=== PATIENT | female | born 1935 | race Caucasian/White ===

== ENCOUNTER 2018-07-11 12:49 | Emergency (ER) | payer OTHER ==
[2018-07-11 15:08] LABS: Protime INR 1.06
[2018-07-11 15:09] LABS: Absolute Lymphocytes (CBC) 2.6 K/uL (0.7-4.9); Absolute Monocytes 1.2 K/uL (0.1-1.3); Absolute Neutrophil 7.7 K/uL (1.8-8.0); Basophils % 0.5 % (0-1.3); Eosinophils % 1.2 % (0-4.4); Hematocrit 45.9 % (36.0-45.0); Lymphocytes % 21.8 % (15.3-44.8); MPV 8.2 fL (7.6-11.3); Monocytes % 10.3 % (3.3-12.3); RBC Red Blood Cell Count 5.39 M/uL (3.86-4.86)
[2018-07-11] MEDS ORDERED: NA CHLORIDE 0.9% 500 ML ONE (15:09)
[2018-07-11] MEDS ORDERED: FAMOTIDINE 20 MG/2 ML VIAL IV ONE (15:10)
[2018-07-11] MEDS ORDERED: NA CHLORIDE 0.9% 1,000 ML ONE (15:10)
--- NOTE | 2018-07-11 15:54 | RAD REPORT ---
EXAM DESCRIPTION: RAD - Chest Single View - 07/11/2018 3:39 pm CLINICAL HISTORY: Cough, abdominal distention, abdominal pain COMPARISON: November 05, 2017 TECHNIQUE: AP portable chest image was obtained 1517 hours . FINDINGS: No peripheral mass or consolidation. Chronic interstitial lung disease is evident. Pattern is not substantially different. Cardiomegaly is present without vascular engorgement. No measurable pleural effusion and no pneumothorax. No acute bony abnormality seen. No acute aortic findings suspec devendra. IMPRESSION: Chronic interstitial lung disease is evident similar to comparison. No acute finding brittany ntified.
[2018-07-11 16:08] LABS: Albumin 3.2 g/dL (3.4-5.0); Bilirubin Direct 0.4 mg/dL (0-0.2); Magnesium 1.9 mg/dL (1.8-2.4); Protein, Total 6.9 g/dL (6.4-8.2)
[2018-07-11 16:11] LABS: Potassium 2.5 mmol/L (3.5-5.1); Troponin (Emerg Dept Use Only) 1.14 ng/mL (0.0-0.045)
--- NOTE | 2018-07-11 16:33 | ER ---
Nurse's Notes [facility] Name: Segun Mckinnon Age: 82 yrs Sex: Female : 1935 Arrival Date: 07/11/2018 Time: 13:20 Bed 8 Private MD: Diagnosis: Hypokalemia;Vomiting;Diarrhea, unspecified;Non-ST elevation (NSTEMI) myocardial infarction;Atrial fibrillation and flutter-slow ventricular response, new onset;Ileus, unspecified-enteritis;Abdominal tenderness;Obesity, unspecified Presentation: 07/11 13:26 Presenting complaint: Patient states: Nausea that has remained after Vomiting and aj diarrhea resolved yesterday. Patient reports she became ill on Thanksgiving and got better yesterday. Able to tolerate food and liquids. Transition of care: patient was not received from another setting of care. Onset of symptoms was July 05, 2018. Risk Assessment: Do you want to hurt yourself or someone else? Patient reports no desire to harm self or others. Initial Sepsis Screen: Does the patient meet any 2 criteria? No. Patient's initial sepsis screen is negative. Does the patient have a suspected source of infection? No. Patient's initial sepsis screen is negative. Care prior to arrival: None. 13:26 Method Of Arrival: Ambulatory aj 13:26 Acuity: LUPILLO 3 aj Triage Assessment: :28 General: Appears in no apparent distress. comfortable, Behavior is calm, cooperative, aj appropriate for age. Pain: Denies pain. Neuro: Level of Consciousness is awake, alert, obeys commands, Oriented to person, place, time, situation, Appropriate for age. Respiratory: Airway is patent Respiratory effort is even, unlabored, Respiratory pattern is regular, symmetrical. GI: Reports nausea. Derm: Skin is intact, is healthy with good turgor, Skin is pink, warm \\T\\ dry. normal. Historical: - Allergies: 13:28 No Known Allergies; aj - Home Meds: : Unable to obtain [Active]; aj - PMHx: 13:28 Hypertension; Asthma; aj - PSHx: 13:28 Hysterectomy; Cholecystectomy; aj - Immunization history:: Adult Immunizations up to date. - Social history:: Smoking status: Patient/guardian denies using tobacco. - Ebola Screening: : Patient negative for fever greater than or equal to 101.5 degrees Fahrenheit, and additional compatible Ebola Virus Disease symptoms Patient denies exposure to infectious person Patient denies travel to an Ebola-affected area in the 21 days before illness onset No symptoms or risks identified at this time. - Family history:: not pertinent. Screenin:35 Abuse screen: Denies threats or abuse. ca1 14:35 Fall Risk None identified. ca1 14:35 Nutritional screening: No deficits noted. ca1 14:35 Tuberculosis screening: No symptoms or risk factors identified. ca1 Assessment: 14:35 General: Appears in no apparent distress. Behavior is calm, cooperative. Pain: ca1 Complains of pain in abdomen Pain does not radiate. Pain currently is 3 out of 10 on a pain scale. Pain began approximately a week ago Is intermittent. Neuro: Level of Consciousness is awake, alert, obeys commands, Oriented to person, place, time, situation. Cardiovascular: Heart tones S1 S2 present Rhythm is irregular. Respiratory: Airway is patent Respiratory effort is even, unlabored, Respiratory pattern is regular, symmetrical, Breath sounds are clear bilaterally. GI: Abdomen is round Bowel sounds present X 4 quads. Abd is soft and non tender X 4 quads. Reports diarrhea, nausea, vomiting, since approximately a week ago. : No signs and/or symptoms were reported regarding the genitourinary system. EENT: No signs and/or symptoms were reported regarding the EENT system. Derm: Skin is pink, warm \\T\\ dry. Musculoskeletal: Range of motion: intact in all extremities. 15:30 Reassessment: Patient and/or family updated on plan of care and expected duration. Pain ca1 level reassessed. Patient is alert, oriented x 3, equal unlabored respirations, skin warm/dry/pink. Pain: Pain currently is 3 out of 10 on a pain scale. 16:13 Reassessment: Patient and/or family updated on plan of care and expected duration. Pain aa5 level reassessed. Patient is alert, oriented x 3, equal unlabored respirations, skin warm/dry/pink. Patient denies pain at this time. 16:40 Reassessment: Dr. Toledo spoke to patient about need for heparin drip and need for aa5 admission due to elevated troponin and new onset A-fib. Pt states "I understand but I am not staying in the hospital", pt refusing admission. Dr. Toledo explained patient about high risk for cardiac arrest and stroke if going home without treatment, pt states "I am not staying in the hospital, I already told you". Pt highly encouraged to be admitted by me and Dr. Toledo, pt continues to refuse. Pt's daughter at bedside. . 17:20 Reassessment: Patient wants to leave AMA but is agreeing to potassium infusion. Patient ca1 will leave after Potassium infusion is completed. . 17:40 Reassessment: To bedside to administer antibiotics IV, pt refusing IV antibiotics. Pt ca1 states "I just came here to get antibiotics, can you ask the doctor if I can get a prescription so I can go home?". Dr. Toledo was notified and no antibiotic prescription will be given to patient, pt continues to want to leave AMA, patient notified of inability to prescribe oral antibiotics by Dr. Toledo, pt states "Okay I want to leave when the potassium is done" . 18:25 Reassessment: Patient is alert, oriented x 3, equal unlabored respirations, skin ca1 warm/dry/pink. Patient states, " I don't want the rest of the Potassium, I want to go home now".. Vital Signs: 13:28 BP 146 / 83; Pulse 79; Resp 20; Temp 98.9(O); Pulse Ox 97% on R/A; Weight 79.38 kg; aj Height 5 ft. 11 in. (180.34 cm); 15:22 BP 147 / 78; Pulse 51 MON; Resp 19; Pulse Ox 98% on R/A; ca1 16:11 BP 140 / 60; Pulse 60 MON; Resp 15; Pulse Ox 98% on R/A; aa5 17:00 BP 131 / 58; Pulse 57; Resp 16; Pulse Ox 98% on R/A; ca1 18:05 BP 153 / 73; Pulse 53; Resp 17; Pulse Ox 98% on R/A; ca1 13:28 Body Mass Index 24.41 (79.38 kg, 180.34 cm) ED Course: 13:20 Patient arrived in ED. rg4 13:28 Triage completed. 13:28 Arm band placed on left wrist. Patient placed in waiting room, Patient notified of wait aj time. 14:16 Narciso Toledo MD is Attending Physician. [facility] 14:16 Maribel Lenz, MINERVA is Primary Nurse. ca1 14:35 Patient has correct armband on for positive identification. Placed in gown. Bed in low ca1 position. Call light in reach. Side rails up X2. Adult w/ patient. cardiac monitor on. Pulse ox on. NIBP on. 14:52 Initial lab(s) drawn, by me, sent to lab. Inserted saline lock: 22 gauge in left dh3 forearm, using aseptic technique. Blood collected. 15:35 X-ray completed. Portable x-ray completed in exam room. Patient tolerated procedure ag1 well. 15:39 XRAY Chest (1 view) In Process Unspecified. EDMS 16:00 No provider procedures requiring assistance completed. ca1 16:29 Raymond Rodriguez MD is Hospitalizing Provider. az 16:[address] via stretcher. ca1 18:25 IV discontinued, intact, bleeding controlled, No redness/swelling at site. Pressure ca1 dressing applied. Administered Medications: Discontinued: NS 0.9% 500 ml IV at bolus once Discontinued: NS 0.9% 1000 ml IV at 125 ml/hr continuous 15:07 Drug: Pepcid 20 mg Route: IVP; Site: left forearm; ca1 15:15 Follow up: Response: No adverse reaction ca1 15:10 Drug: NS 0.9% 500 ml Route: IV; Rate: bolus; Site: left forearm; ca1 16:01 Drug: NS 0.9% 1000 ml Route: IV; Rate: 125 ml/hr; Site: left forearm; aa5 16:40 Drug: Potassium Effervescent Tablet 25 mEq Route: PO; ca1 17:30 Follow up: Response: No adverse reaction ca1 17:07 Not Given (Patient Refused): Aspirin 162 mg PO once ca1 17:07 Not Given (Patient Refused): Heparin (ME-Bolus No thrombolytic) - HEParin 60 units/kg ca1 IVP once; Max 5000 units 17:07 Not Given (Patient Refused): Heparin (ME Drip) 12 units/kg/hr - (HEParin 75401 units, ca1 D5W 500 ml) IV at calculated rate Per protocol; Max initial rate 1000 units/hr 17:20 Drug: Potassium Chloride 20 mEq Route: IV; Rate: per protocol; Site: left forearm; ca1 18:25 Follow up: Infusion discontinued per patient's request. ca1 17:44 Not Given (Patient Refused): Flagyl 500 mg 100 ml IVPB at 200 ml/hr once over 30 mins aa5 17:44 Not Given (Patient Refused): Cipro 400 mg 200 ml IVPB once over 60 mins aa5 18:40 Not Given (Patient Refused): Potassium Chloride 20 mEq IV at per protocol once; ca1 administer over 1-2 hours 18:42 Not Given (Patient Refused): NS 0.9% with KCl 20 mEq/L 1000 ml IV at 100 ml/hr ca1 continuous Intake: Outcome: 16:32 Decision to Hospitalize by Provider. az 18:28 AMA Other Patient refused to sign AMA form, witnessed by me and Leslie Ornelas RN. ca1 18:28 Condition: stable 18:28 Instructed on the need for admit. 18:35 Patient left the ED. ca1 Signatures: Dispatcher [employer] EDClara Sanchez RN Narciso Finn MD MD cha Calderon, Audri, RN RN aa5 Sangita Salas ag1 Sherri Baker 4 Radha Taylor 3 Maribel Lenz RN RN ca1 Corrections: (The following items were deleted from the chart) 14:55 14:35 General: Appears in no apparent distress. Behavior is calm, cooperative, ca1 ca1 15:20 14:35 Respiratory: Airway is patent Respiratory effort is even, unlabored, Respiratory ca1 pattern is regular, symmetrical, ca1 17:59 14:40 Potassium Effervescent Tablet 25 mEq PO ca1 ca1 18:46 18:30 Infusion discontinued per patient's request. ca1 ca1
--- NOTE | 2018-07-11 16:33 | EDPHYS ---
Physician Documentation [facility] Name: Segun Mckinnon Age: 82 yrs Sex: Female : 1935 Arrival Date: 07/11/2018 Time: 13:20 Bed 8 Private MD: ED Physician Narciso Toledo HPI: 07/11 14:34 This 82 yrs old Female presents to ER via Ambulatory with complaints of az Abdominal Pain, Diarrhea. 14:34 The patient presents to the emergency department with nausea, vomiting, diarrhea, az abdominal pain. Onset: The symptoms/episode began/occurred 2 day(s) ago. Possible causes: unknown. The symptoms are aggravated by nothing. Associated signs and symptoms: The patient has no apparent associated signs or symptoms. Severity of symptoms: At their worst the symptoms were mild moderate in the emergency department the symptoms are unchanged. The patient has not experienced similar symptoms in the past. Historical: - Allergies: 13:28 No Known Allergies; aj - Home Meds: 13:28 Unable to obtain [Active]; aj - PMHx: 13:28 Hypertension; Asthma; aj - PSHx: 13:28 Hysterectomy; Cholecystectomy; aj - Immunization history:: Adult Immunizations up to date. - Social history:: Smoking status: Patient/guardian denies using tobacco. - Ebola Screening: : Patient negative for fever greater than or equal to 101.5 degrees Fahrenheit, and additional compatible Ebola Virus Disease symptoms Patient denies exposure to infectious person Patient denies travel to an Ebola-affected area in the 21 days before illness onset No symptoms or risks identified at this time. - Family history:: not pertinent. ROS: 14:38 Constitutional: Negative for fever, chills, and weight loss, Eyes: Negative for injury, az pain, redness, and discharge, ENT: Negative for injury, pain, and discharge, Neck: Negative for injury, pain, and swelling, Cardiovascular: Negative for chest pain, palpitations, and edema, Respiratory: Negative for shortness of breath, cough, wheezing, and pleuritic chest pain, Back: Negative for injury and pain, : Negative for injury, bleeding, discharge, and swelling, MS/Extremity: Negative for injury and deformity, Skin: Negative for injury, rash, and discoloration, Neuro: Negative for headache, weakness, numbness, tingling, and seizure, Psych: Negative for depression, anxiety, suicide ideation, homicidal ideation, and hallucinations, Allergy/Immunology: Negative for hives, rash, and allergies, Endocrine: Negative for neck swelling, polydipsia, polyuria, polyphagia, and marked weight changes, Hematologic/Lymphatic: Negative for swollen nodes, abnormal bleeding, and unusual bruising. 14:38 Abdomen/GI: Positive for abdominal pain, of the right upper quadrant, left upper quadrant, right lower quadrant and left lower quadrant. Exam: 14:38 Constitutional: This is a well developed, well nourished patient who is awake, alert, az and in no acute distress. Head/Face: Normocephalic, atraumatic. Eyes: Pupils equal round and reactive to light, extra-ocular motions intact. Lids and lashes normal. Conjunctiva and sclera are non-icteric and not injected. Cornea within normal limits. Periorbital areas with no swelling, redness, or edema. ENT: Nares patent. No nasal discharge, no septal abnormalities noted. Tympanic membranes are normal and external auditory canals are clear. Oropharynx with no redness, swelling, or masses, exudates, or evidence of obstruction, uvula midline. Mucous membranes moist. Neck: Trachea midline, no thyromegaly or masses palpated, and no cervical lymphadenopathy. Supple, full range of motion without nuchal rigidity, or vertebral point tenderness. No Meningismus. Chest/axilla: Normal chest wall appearance and motion. Nontender with no deformity. No lesions are appreciated. Cardiovascular: Regular rate and rhythm with a normal S1 and S2. No gallops, murmurs, or rubs. Normal PMI, no JVD. No pulse deficits. Respiratory: Lungs have equal breath sounds bilaterally, clear to auscultation and percussion. No rales, rhonchi or wheezes noted. No increased work of breathing, no retractions or nasal flaring. Back: No spinal tenderness. No costovertebral tenderness. Full range of motion. Female : Normal external genitalia. Skin: Warm, dry with normal turgor. Normal color with no rashes, no lesions, and no evidence of cellulitis. MS/ Extremity: Pulses equal, no cyanosis. Neurovascular intact. Full, normal range of motion. Neuro: Awake and alert, GCS 15, oriented to person, place, time, and situation. Cranial nerves II-XII grossly intact. Motor strength 5/5 in all extremities. Sensory grossly intact. Cerebellar exam normal. Normal gait. Psych: Awake, alert, with orientation to person, place and time. Behavior, mood, and affect are within normal limits. 14:38 Abdomen/GI: Inspection: distension, Bowel sounds: normal, Palpation: mild abdominal tenderness, in all quadrants, Liver: no appreciated palpable abnormalities, Hernia: not appreciated. Vital Signs: 13:28 BP 146 / 83; Pulse 79; Resp 20; Temp 98.9(O); Pulse Ox 97% on R/A; Weight 79.38 kg; aj Height 5 ft. 11 in. (180.34 cm); 15:22 BP 147 / 78; Pulse 51 MON; Resp 19; Pulse Ox 98% on R/A; ca1 16:11 BP 140 / 60; Pulse 60 MON; Resp 15; Pulse Ox 98% on R/A; aa5 17:00 BP 131 / 58; Pulse 57; Resp 16; Pulse Ox 98% on R/A; ca1 18:05 BP 153 / 73; Pulse 53; Resp 17; Pulse Ox 98% on R/A; ca1 13:28 Body Mass Index 24.41 (79.38 kg, 180.34 cm) aj MDM: 14:16 Patient medically screened. [facility] 14:38 Data reviewed: vital signs, nurses notes, lab test result(s), EKG, radiologic studies, [facility] CT scan, plain films. 07/11 14:33 Order name: Basic Metabolic Panel; Complete Time: 16:42 az 07/11 14:33 Order name: CBC with Diff; Complete Time: 16:14 [facility] 07/11 14:33 Order name: LFT's; Complete Time: 16:42 az 07/11 14:33 Order name: Magnesium; Complete Time: 16:42 az 07/11 14:33 Order name: NT PRO-BNP; Complete Time: 16:42 az 07/11 14:33 Order name: PT-INR; Complete Time: 16:14 az 07/11 14:33 Order name: Troponin (emerg Dept Use Only); Complete Time: 16:42 az 07/11 14:33 Order name: Lipase; Complete Time: 16:42 az 07/11 14:33 Order name: Urine Culture [facility] 07/11 16:26 Order name: Phosphorus; Complete Time: 16:42 EDMS 07/11 17:28 Order name: Comprehensive Metabolic Panel [facility] 07/11 14:33 Order name: XRAY Chest (1 view); Complete Time: 16:14 [facility] 07/11 14:33 Order name: CT Abd/Pelvis - W/Contrast [facility] 07/11 17:28 Order name: Lipid Profile [facility] 07/11 17:28 Order name: Troponin I [facility] 07/11 17:28 Order name: Troponin I [facility] 07/11 17:29 Order name: CBC with Automated Diff [facility] 07/11 17:50 Order name: Urine Dipstick--Ancillary (enter results) 07/11 14:33 Order name: EKG; Complete Time: 14:35 [facility] 07/11 14:33 Order name: Cardiac monitoring; Complete Time: 14:56 [facility] 07/11 14:33 Order name: EKG - Nurse/Tech; Complete Time: 14:56 [facility] 07/11 14:33 Order name: IV Saline Lock; Complete Time: 14:56 [facility] 07/11 14:33 Order name: Labs collected and sent; Complete Time: 14:56 [facility] 07/11 14:33 Order name: O2 Per Protocol; Complete Time: 14:56 [facility] 07/11 14:33 Order name: O2 Sat Monitoring; Complete Time: 14:56 [facility] 07/11 16:41 Order name: CONS Physician Consult [facility] 07/11 17:11 Order name: CT; Complete Time: 17:20 [facility] 07/11 17:29 Order name: Clear Liquid [facility] 07/11 18:14 Order name: Consult Internal Medicine-Raymond Rodriguez MD ([facility]); Complete [facility] Time: 18:22 Administered Medications: Discontinued: NS 0.9% 500 ml IV at bolus once Discontinued: NS 0.9% 1000 ml IV at 125 ml/hr continuous 15:07 Drug: Pepcid 20 mg Route: IVP; Site: left forearm; ca1 15:15 Follow up: Response: No adverse reaction ca1 15:10 Drug: NS 0.9% 500 ml Route: IV; Rate: bolus; Site: left forearm; ca1 16:01 Drug: NS 0.9% 1000 ml Route: IV; Rate: 125 ml/hr; Site: left forearm; aa5 16:40 Drug: Potassium Effervescent Tablet 25 mEq Route: PO; ca1 17:30 Follow up: Response: No adverse reaction ca1 17:07 Not Given (Patient Refused): Aspirin 162 mg PO once ca1 17:07 Not Given (Patient Refused): Heparin (AK-Bolus No thrombolytic) - HEParin 60 units/kg ca1 IVP once; Max 5000 units 17:07 Not Given (Patient Refused): Heparin (AK Drip) 12 units/kg/hr - (HEParin 39292 units, ca1 D5W 500 ml) IV at calculated rate Per protocol; Max initial rate 1000 units/hr 17:20 Drug: Potassium Chloride 20 mEq Route: IV; Rate: per protocol; Site: left forearm; ca1 18:25 Follow up: Infusion discontinued per patient's request. ca1 17:44 Not Given (Patient Refused): Flagyl 500 mg 100 ml IVPB at 200 ml/hr once over 30 mins aa5 17:44 Not Given (Patient Refused): Cipro 400 mg 200 ml IVPB once over 60 mins aa5 18:40 Not Given (Patient Refused): Potassium Chloride 20 mEq IV at per protocol once; ca1 administer over 1-2 hours 18:42 Not Given (Patient Refused): NS 0.9% with KCl 20 mEq/L 1000 ml IV at 100 ml/hr ca1 continuous Disposition: 07/11/18 18:32 Patient has left against medical advice. Impression: Hypokalemia, Vomiting, Diarrhea, unspecified, Non-ST elevation (NSTEMI) myocardial infarction, Atrial fibrillation and flutter - slow ventricular response, new onset, Ileus, unspecified - enteritis, Abdominal tenderness, Obesity, unspecified. - Patients states they are going to Home. - Condition is Serious. Follow up: Private Physician; When: Upon discharge from the Emergency Department; Reason: Recheck today's complaints, Continuance of care, Re-evaluation by your physician. - Problem is new. - Symptoms are unchanged. Signatures: Dispatcher [employer] EDClara Sanchez RN RN aj Anderson, Corey, MD MD cha Calderon, Audri RN MINERVA aa5 Maribel Lenz RN RN ca1 Corrections: (The following items were deleted from the chart) 16:26 16:19 PHOSPHORUS+[id number].LAB.BRZ ordered. [facility] EDMI 17:23 16:32 Hospitalization Ordered by Raymond Rodriguez MD for Inpatient Admission. Preliminary az diagnosis is Atrial fibrillation and flutter; Hypokalemia; Vomiting; Diarrhea, unspecified; Non-ST elevation (NSTEMI) myocardial infarction; Cardiomegaly; Unspecified combined systolic (congestive) and diastolic (congestive) heart failure. Bed requested for Intensive Care Unit. Status is Inpatient Admission. Condition is Fair. Problem is new. Symptoms have improved. UTI on Admission? No. az 17:44 17:22 IV Saline Lock - Large Bore ordered. az aa5 18:30 17:23 07/11/2018 16:32 Hospitalization Ordered by Raymond Rodriguez MD for Inpatient [facility] Admission. Preliminary diagnosis is Atrial fibrillation and flutter - new onset, svr; Hypokalemia; Vomiting; Diarrhea, unspecified; Non-ST elevation (NSTEMI) myocardial infarction; Cardiomegaly; Unspecified combined systolic (congestive) and diastolic (congestive) heart failure; Ileus, unspecified - enteritis. Bed requested for Intensive Care Unit. Status is Inpatient Admission. Condition is Fair. Problem is new. Symptoms have improved. UTI on Admission? No. az 18:35 18:32 07/11/2018 18:32 Patients has left against medical advice. Impression: ca1 Hypokalemia; Vomiting; Diarrhea, unspecified; Non-ST elevation (NSTEMI) myocardial infarction; Atrial fibrillation and flutter - slow ventricular response, new onset; Ileus, unspecified - enteritis; Abdominal tenderness; Obesity, unspecified. Patient states they are going to Home. Condition is Serious. Follow up: Private Physician; When: Upon discharge from the Emergency Department; Reason: Recheck today's complaints, Continuance of care, Re-evaluation by your physician. Problem is new. Symptoms are unchanged. az
[2018-07-11] MEDS ORDERED: ASPIRIN 81 MG CHEWABLE TABLET ONE (16:35)
[2018-07-11] MEDS ORDERED: NS KCL 20MEQ 0 ML IV ONE (16:36)
[2018-07-11] MEDS ORDERED: KCL 20 MEQ/100 mL IVPB 20 MEQ/100 ML BAG IV ONE (16:36)
[2018-07-11] MEDS ORDERED: POTASSIUM 25 MEQ EFFERV TAB ONE (16:37)
[2018-07-11] MEDS ORDERED: HEPARIN/D5W 0 UNIT/0 ML BAG IV ONE (16:37)
[2018-07-11] MEDS ORDERED: HEPARIN 5000 UNIT/ML 1 ML VIAL ONE (16:37)
[2018-07-11 16:39] LABS: Phosphorus 2.8 mg/dL (2.5-4.9)
--- NOTE | 2018-07-11 17:10 | RAD REPORT ---
EXAM DESCRIPTION: CT - Abdomen Pelvis W Contrast - 07/11/2018 4:46 pm CLINICAL HISTORY: Abdominal pain COMPARISON: None. TECHNIQUE: Biphasic, helical CT imaging of the abdomen and pelvis was performed following 100 ml non -ionic IV contrast. Oral contrast was given. All CT scans are performed using dose optimization technique as appropriate and may include automated exposure control or mA/KV adjustment according to patient size. FINDINGS: No suspicious findings in the lung bases. The liver, spleen, and pancreas show no suspicious findings. Cholecystectomy clips are present. No bi liary tree dilatation. Symmetric renal function is seen with no hydronephrosis or suspicious renal mass. No pyelonephritis o r acute renal parenchymal process. Urinary bladder is mostly contracted. Pelvic floor laxity is prese nt. Uterus is absent. Ovaries are atrophic. No gastric dilatation or wall thickening. Duodenum is unremarkable. Proximal small bowel loops are di lated up to 4 cm. Bowel transitions back to a normal diameter in the lower abdomen. Ileocecal valve i s normal. A mass or point of obstruction is not identified. There is some fecalized bowel content wit hin the distal small bowel. Patient has bilateral inguinal hernias. There is a small amount of free f luid in the right-sided hernia. A knuckle of small bowel extends into the origin of the inguinal sanna l on the right. Does not appear to be a point of obstruction. No free air or pneumatosis. Small quantity of free fluid in the pelvis is likely reactive. No bulk y lymphadenopathy. No mass. No omental thickening. No adrenal abnormality. Disc and bony degenerative changes are present. Dense arterial tree calcifications are present. IMPRESSION: Multiple dilated proximal small bowel loops are present without an obstructing mass or p oint of transition. Small bowel finding may represent enteritis or ileus. No gastric dilatation or abnormal fluid retenti on. Patient does have a right inguinal hernia they contains a knuckle of distal small bowel. This does no t appear to be a point of obstruction.
[2018-07-11] MEDS ORDERED: ONDANSETRON 4 MG/2 ML VIAL IV PRN (17:23)
[2018-07-11] MEDS ORDERED: ACETAMINOPHEN 500 MG TAB PO PRN (17:23)
[2018-07-11] MEDS ORDERED: D5.45NS W/KCL 20MEQ 1,000 ML IV SCH ×2 (18:00)
[2018-07-11 18:08] LABS: Urine Blood NEGATIVE (NEG); Urine Glucose NEGATIVE (NEG); Urine Protein NEGATIVE (NEG); Urine pH 7.5 (5.0-7.0)
--- NOTE | 2018-07-11 18:13 | P.CNS ---
Date of Consult: 07/11/18 Patient seen and examined. Chart reviewed and case discussed with RN and Dr. Toledo. I was called to admit patient. Patient is an 82 yo F w PMHx of HTN and asthma who comes in with abdominal discomfort, diarrhea and N/V x 5 days. Patient was worked up and found to have colitis/enteritis on CT abd however also had low K 2.5 and elevated trop at 1.14. She was in Afib w slow vent rate. Patients K was replaced however she did not wish to stay in the hospital. She signed out AMA. She was counseled extensively regarding benefits of staying and risks of leaving. She understands that her condition will worsen and may even lead to a coronary event or perhaps even . Patient was AAOx3, adamant about leaving. Daughter at the bedside. Patient stated she wants to go home and requested Abx script for her colitis. She understands that is not sufficient for her condition. PE VSS, afebrile. HR<60 Gen AAOx3 CV S1, S2, irregularly, irregular Resp CTA b/l Abd soft NT/ND, +BS Labs reviewed Imaging reviewed
--- NOTE | 2018-07-11 20:22 | P.HP ---
Certification for Inpatient Patient admitted to: Inpatient With expected LOS: >2 Midnights Patient will require the following post-hospital care: None Practitioner: I am a practitioner with admitting privileges, knowledge of patient current condition, hospital course, and medical plan of care. Services: Services provided to patient in accordance with Admission requirements found in Title 42 Section 412.3 of the Code of Federal Regulations Patient History Date of Service: 07/12/18 Reason for admission: Colitis History of Present Illness: Patient is an 82 yo F w PMHx of HTN and asthma who comes in with abdominal discomfort, diarrhea and N/V x 5 days. She denied any chest pain or shortness of breath. Her symptoms are constant moderate progressively worsening. Patient was brought into the ER for further evaluation. Patient was worked up and found to have colitis/enteritis on CT abd however also had low K 2.5 and elevated trop at 1.14. She was in Afib w slow vent rate. Patient's potassium was replaced IV Home medications list reviewed: Yes - Past Medical/Surgical History Diabetic: No -: Hypertension -: Asthma -: Hysterectomy -: Cholecystectomy - Family History Family History: Reviewed- Non-Contributory (Patient denies any family history of cancer or premature coronary artery disease) - Social History Smoking Status: Never smoker Alcohol use: No Place of Residence: Home Review of Systems 10-point ROS is otherwise unremarkable Physical Examination - Vital Signs Temperature: 98.9 F Blood Pressure: 153/73 Pulse: 53 Respirations: 17 - Physical Exam General: Alert, In no apparent distress, Oriented x3 HEENT: Atraumatic, PERRLA, Mucous membr. moist/pink, EOMI, Sclerae nonicteric Neck: Supple, 2+ carotid pulse no bruit, Without JVD or thyroid abnormality Respiratory: Clear to auscultation bilaterally, Normal air movement Cardiovascular: No edema, Normal pulses, Normal S1 S2, Irregular heart rate/ rhythm Gastrointestinal: Normal bowel sounds, Soft and benign, Non-distended, No tenderness Musculoskeletal: No clubbing, No tenderness Integumentary: No rashes Neurological: Normal gait, Normal speech, Normal strength at 5/5 x4 extr, Normal tone, Normal affect - Studies Laboratory Data (last 24 hrs) 07/11/18 18:01: Troponin I 0.92 H* 07/11/18 16:19: Phosphorus Cancelled 07/11/18 14:50: PT 12.5, INR 1.06 07/11/18 14:50: WBC 11.7 H, Hgb 15.1 H, Hct 45.9 H, Plt Count 297 07/11/18 14:50: Sodium 135 L, Potassium 2.5 L*, BUN 12, Creatinine 1.00, Glucose 120 H, Phosphorus 2.8, Magnesium 1.9, Total Bilirubin 1.0, AST 28, ALT 23, Alkaline Phosphatase 83, Lipase 179 Assessment and Plan - Plan Assessment and plan 1. Colitis 2. Hypokalemia 3. Atrial fibrillation with slow ventricular rate 4. Elevated troponin level 5. Essential hypertension 6. Intermittent asthma Patients K was replaced however she did not wish to stay in the hospital. She signed out AMA. She was counseled extensively regarding benefits of staying and risks of leaving. She understands that her condition will worsen and may even lead to a coronary event or perhaps even . Patient was AAOx3, adamant about leaving. Daughter at the bedside. Patient stated she wants to go home and requested Abx script for her colitis. She understands that is not sufficient for her condition. Discharge Plan: Home Plan to discharge in: 48 Hours - Advance Directives Does patient have a Living Will: No Does patient have a Durable POA for Healthcare: No - Code Status/Comfort Care Code Status Assessed: Yes
--- NOTE | 2018-07-12 07:21 | EKG ---
Test Date: 2018-07-11 Test Time: 14:52:41 Return To Service Inspector: ROGER MEASUREMENT RESULTS: Intervals: Rate: 62 OR: QRSD: 128 QT: 462 QTc: 468 [place]: P: OR: QRS: -49 T: 234 INTERPRETIVE STATEMENTS: Atrial fibrillation with premature ventricular or aberrantly conducted complexes es Left axis deviation Nonspecific intraventricular block Cannot rule out Anteroseptal infarct, age undetermined T wave abnormality, consider inferolateral ischemia Abnormal ECG No previous ECG available for comparison Electronically Signed On 07-12-18 07:19:56 LABORATORY ANIMAL CARETAKER by Polo Martínez
== END 2018-07-11 18:35 | disposition left against medical advice (07) ==
LOC: ER 12:49 → ERHOLD 16:34 → UNDOADMIN 16:34 → ER 18:35
DX: K52.9 Noninfective gastroenteritis and colitis, unspecified (principal); I21.4 Non-ST elevation (NSTEMI) myocardial infarction; I48.91 Unspecified atrial fibrillation; I48.92 Unspecified atrial flutter; E87.6 Hypokalemia; R19.7 Diarrhea, unspecified; E66.9 Obesity, unspecified; I10 Essential (primary) hypertension
CPT/HCPCS: 36415; 71045; 74177; 80048; 80076; 81003; 83690; 83735; 83880; 84100; 84484 ×2; 85025; 85610; 87086; 87088; 93005; J1644; J7030; Q9967

== ENCOUNTER 2018-12-20 12:17 | Inpatient (IN) | payer OTHER ==
[2018-12-20 13:24] LABS: Absolute Lymphocytes (CBC) 2.1 K/uL (0.7-4.9); Absolute Neutrophil 11.7 K/uL (1.8-8.0); Basophils % 0.6 % (0-1.3); Eosinophils % 0.7 % (0-4.4); Hematocrit 48.9 % (36.0-45.0); Lymphocytes % 14.1 % (15.3-44.8); MPV 9.4 fL (7.6-11.3); Monocytes % 6.7 % (3.3-12.3)
[2018-12-20 13:25] LABS: Protime INR 1.12
[2018-12-20 13:41] LABS: Albumin 3.5 g/dL (3.4-5.0); Bilirubin Direct 0.6 mg/dL (0-0.2); Bilirubin Total 2.7 mg/dL (0.2-1.0); Magnesium 1.7 mg/dL (1.8-2.4); Protein, Total 7.5 g/dL (6.4-8.2); Troponin (Emerg Dept Use Only) 1.93 ng/mL (0.0-0.045)
[2018-12-20 13:53] LABS: Potassium 2.6 mmol/L (3.5-5.1)
--- NOTE | 2018-12-20 14:33 | RAD REPORT ---
EXAM DESCRIPTION: RAD - Chest Single View - 12/20/2018 1:42 pm CLINICAL HISTORY: Shortness of breath COMPARISON: December 11, 2018 TECHNIQUE: AP portable chest image was obtained 1334 hours . FINDINGS: Extensive chronic interstitial lung disease is present. This could potentially mask acute edema or infiltrate. No gross change from comparison. No peripheral mass or consolidation. Cardiomegaly is present similar to prior imaging. No acute vascular engorgement. Trachea is midline. No measurable pleural effusion and no pneumothorax. No acute bony abnormality seen. No acute aortic findings suspected. IMPRESSION: Extensive chronic interstitial lung disease not clearly different from comparison. This could potentially mask early interstitial edema or infiltrate. Cardiomegaly similar to comparison.
[2018-12-20] MEDS ORDERED: NA CHLORIDE 0.9% 500 ML ONE (14:42)
[2018-12-20] MEDS ORDERED: MAGNESIUM SULFATE 1 gm IVPB 1 GM/100 ML BAG IV ONE (14:43)
[2018-12-20] MEDS ORDERED: KCL 20 MEQ/100 mL IVPB 20 MEQ/100 ML BAG IV ONE (14:43)
--- NOTE | 2018-12-20 14:50 | ER ---
Nurse's Notes [facility] Name: Segun Mckinnon Age: 83 yrs Sex: Female : 1935 Arrival Date: 12/20/2018 Time: 12:32 Bed 15 Private MD: Diagnosis: Non-ST elevation (NSTEMI) myocardial infarction;Atrial fibrillation and flutter Presentation: 12/20 12:12 Presenting complaint: EMS states: Pt. c/o of difficulty breathing, has a history of rb1 asthma. A \T\ O x 4, pt. is from home. 12- Lead showed Tachycardia, A-Fib with RVR, and PVC's. c/o Generalized weakness, intermittent pain all over, and nausea. History of HTN, hyperlipidemia, and asthma, NKDA. Transition of care: patient was not received from another setting of care. Onset of symptoms is unknown. Risk Assessment: Do you want to hurt yourself or someone else? Patient reports no desire to harm self or others. Care prior to arrival: None. 12:12 Method Of Arrival: EMS: [facility] rb1 12:12 Acuity: LUPILLO 3 rb1 12:12 Initial Sepsis Screen: Does the patient meet any 2 criteria? No. Patient's initial rb1 sepsis screen is negative. Does the patient have a suspected source of infection? No. Patient's initial sepsis screen is negative. 14:30 Acuity: LUPILLO 2 sv Triage Assessment: 12:12 General: Appears distressed, Behavior is anxious. General: Behavior is. Pain: Complains rb1 of pain in generalized Pain currently is 5 out of 10 on a pain scale. Pain began x 1 week. Neuro: Level of Consciousness is awake, alert, obeys commands, Oriented to person, place, time, situation. Neuro: Cardiovascular: Capillary refill < 3 seconds is brisk in bilateral fingers. Respiratory: Reports shortness of breath Airway is patent Respiratory effort is even, unlabored, Respiratory pattern is regular, symmetrical, Onset: The symptoms/episode began/occurred the patient has moderate shortness of breath. GI: Reports nausea. : No signs and/or symptoms were reported regarding the genitourinary system. Derm: Skin is pink, warm \T\ dry. Historical: - Allergies: 12:40 No Known Allergies; rb1 - PMHx: 12:40 Asthma; Hypertension; rb1 - PSHx: 12:40 Hysterectomy; Cholecystectomy; rb1 - Immunization history:: Adult Immunizations up to date. - Social history:: Smoking status: Patient/guardian denies using tobacco. - Ebola Screening: : Patient negative for fever greater than or equal to 101.5 degrees Fahrenheit, and additional compatible Ebola Virus Disease symptoms. Screenin:12 Abuse screen: Denies threats or abuse. Nutritional screening: No deficits noted. rb1 Tuberculosis screening: No symptoms or risk factors identified. Fall Risk None identified. Assessment: 12:12 General: See triage assessment. rb1 12:12 Cardiovascular: Rhythm is atrial fibrillation with rapid ventricular response With rb1 PVC's. 12:12 Respiratory: Airway is patent Respiratory effort is even, unlabored, Respiratory rb1 pattern is regular, symmetrical, Breath sounds are diminished in right posterior lower lobe. 13:10 Reassessment: Patient appears in no apparent distress at this time. Patient and/or rb1 family updated on plan of care and expected duration. Pain level reassessed. Patient is alert, oriented x 3, equal unlabored respirations, skin warm/dry/pink. Daughter at bedside. 15:00 Reassessment: Patient appears in no apparent distress at this time. Pt. had a bigeminy rb1 rhythm, provider notified. EKG done. Patient denies pain at this time. 15:08 Reassessment: Pt. c/o of tightness in her chest; provider notified. Received order for rb1 Nitroglycerin PO x 1. 15:18 Reassessment: Patient and/or family updated on plan of care and expected duration. Pain rb1 level reassessed. Patient is alert, oriented x 3, equal unlabored respirations, skin warm/dry/pink. Patient states feeling better. Patient states symptoms have improved. 15:20 Reassessment: Received lab alert for Lactate 3.1. 100 % read back. rb1 15:40 Reassessment: Patient appears in no apparent distress at this time. Patient and/or rb1 family updated on plan of care and expected duration. Pain level reassessed. Patient is alert, oriented x 3, equal unlabored respirations, skin warm/dry/pink. Patient denies pain at this time. 16:32 Reassessment: Patient appears in no apparent distress at this time. No changes from rb1 previously documented assessment. Daughter at bedside. Vital Signs: 12:12 BP 105 / 81; Pulse 109; Resp 20; Temp 98.3(O); Pulse Ox 96% on R/A; Weight 90.72 kg rb1 (R); Height 5 ft. 6 in. (167.64 cm); Pain 5/10; 13:12 BP 140 / 65; Pulse 88; Resp 21; Temp 98.1(O); Pulse Ox 95% ; Pain 2/10; rb1 14:23 BP 122 / 69; Pulse 81; Resp 22; Temp 98.6(O); Pulse Ox 96% ; Pain 5/10; rb1 15:02 BP 107 / 55; Pulse 92; Resp 21; Pulse Ox 95% on R/A; Pain 6/10; rb1 15:23 BP 94 / 70; Pulse 80; Resp 28; Temp 98.7; Pulse Ox 96% on R/A; Pain 5/10; rb1 16:13 BP 113 / 70; Pulse 77; Resp 20; Pulse Ox 97% ; sv 12:12 Body Mass Index 32.28 (90.72 kg, 167.64 cm) rb1 15:23 Pt. is feeling anxious. rb1 ED Course: 12:12 Arm band placed on left wrist. rb1 12:12 Patient has correct armband on for positive identification. Placed in gown. Bed in low rb1 position. Call light in reach. Side rails up X 1. accounting recruiter on. Pulse ox on. NIBP on. Warm blanket given. 12:30 Inserted saline lock: 22 gauge in right wrist, using aseptic technique. Blood collected.rb1 12:32 Patient arrived in ED. rb1 12:37 Triage completed. rb1 12:47 Rahul Morrison NP is PHCP. pm1 12:47 Rafael Jimenez MD is Attending Physician. pm1 13:39 X-ray completed. Portable x-ray completed in exam room. Patient tolerated procedure mh1 well. 13:43 XRAY Chest (1 view) In Process Unspecified. EDMS 14:40 Initial lab(s) drawn, by me, sent to lab. First set of blood cultures drawn by me. sv Inserted saline lock: 20 gauge in right antecubital area, using aseptic technique. Blood collected. Flushed right antecubital with 5 ml normal saline. 14:44 Danilo Felix MD is Hospitalizing Provider. pm1 14:49 Castellano, Carolina, RN is Primary Nurse. rb1 15:17 EKG done, by emg technician. reviewed by Rahul Morrison NP. sm3 16:15 No provider procedures requiring assistance completed. Patient admitted, IV remains in rb1 place. Administered Medications: 14:40 Drug: Magnesium Sulfate 1 grams Route: IVPB; Infused Over: 1 hrs; Site: right sv antecubital; 14:40 Drug: Potassium Chloride 20 mEq Route: IV; Rate: calculated rate; Site: right forearm; sv 14:40 Drug: NS 0.9% 1000 ml Route: IV; Rate: 50 ml/hr; Site: right forearm; sv 15:00 Drug: Potassium Effervescent Tablet 50 mEq Route: PO; rb1 15:00 Drug: Lovenox 1 mg/kg Route: Sub-Q; Site: right lower abdomen; rb1 15:12 Drug: Nitrostat 0.4 mg Route: Sublingual; rb1 15:18 Follow up: Response: No adverse reaction; Pain is decreased rb1 16:33 Drug: Rocephin 1 grams Route: IV; Rate: calculated rate; Site: right antecubital; sv Outcome: 14:50 Decision to Hospitalize by Provider. pm1 16:20 Admitted to Tele accompanied by tech, family with patient, via stretcher, room 429, sv with chart, Report called to Pat PALMA 16:20 Condition: stable 16:20 Instructed on the need for admit. 16:35 Patient left the ED. sv Signatures: Dispatcher [employer] EDSandra Coffey RN RN Carmela Denny 1 Carolina Castellano, MINERVA RN [facility] Rahul Morrison NP GRAIN MIXER pm1 Bela Puente 3 Corrections: (The following items were deleted from the chart) 12:38 12:12 Initial Sepsis Screen: Does the patient meet any 2 criteria? Yes Does the patient rb1 have a suspected source of infection? rb1 16:14 16:13 BP 113 / 70; Pulse 7bpm; Resp 20bpm; Pulse Ox 97%; sv sv
--- NOTE | 2018-12-20 14:50 | EDPHYS ---
Physician Documentation [facility] Name: Segun Mckinnon Age: 83 yrs Sex: Female : 1935 Arrival Date: 12/20/2018 Time: 12:32 Bed 15 Private MD: ED Physician Rafael Jimenez HPI: 12/20 15:29 This 83 yrs old Female presents to ER via EMS with complaints of Breathing pm1 Difficulty. 15:29 The patient has shortness of breath at rest. Onset: The symptoms/episode began/occurred pm1 3 months but worse for the past week. Duration: The symptoms are continuous, and are steadily getting worse. The patient's shortness of breath is aggravated by nothing, is alleviated by nothing. Associated signs and symptoms: Pertinent positives: non-productive cough, subjective fever, Pertinent negatives: chest pain, nausea, vomiting. Severity of symptoms: in the emergency department the symptoms are worse. The patient has been recently seen by a physician: Dr. Medley 1 week(s) ago, with similar presenting complaints, X-rays were performed, given lasix and antibiotics a few days later. Atrial fibrillation with RVR per EMS reports. Historical: - Allergies: 12:40 No Known Allergies; rb1 - PMHx: 12:40 Asthma; Hypertension; rb1 - PSHx: 12:40 Hysterectomy; Cholecystectomy; rb1 - Immunization history:: Adult Immunizations up to date. - Social history:: Smoking status: Patient/guardian denies using tobacco. - Ebola Screening: : Patient negative for fever greater than or equal to 101.5 degrees Fahrenheit, and additional compatible Ebola Virus Disease symptoms. ROS: 15:29 Constitutional: Negative for fever, chills, and weight loss, Eyes: Negative for injury, pm1 pain, redness, and discharge, ENT: Negative for injury, pain, and discharge, Neck: Negative for injury, pain, and swelling, Cardiovascular: Negative for chest pain, palpitations, and edema. 15:29 Abdomen/GI: Negative for abdominal pain, nausea, vomiting, diarrhea, and constipation, Back: Negative for injury and pain, : Negative for injury, bleeding, discharge, and swelling, MS/Extremity: Negative for injury and deformity, Skin: Negative for injury, rash, and discoloration, Neuro: Negative for headache, weakness, numbness, tingling, and seizure. 15:29 Respiratory: Positive for cough, shortness of breath, Negative for sputum production, wheezing. Exam: 15:26 ECG: Atrial fibrillation with PVC. 84 BPM ECG with patient having chest pain 4/10 pm1 that was resolved with 1 x Nitro SL 15:29 Constitutional: This is a well developed, well nourished patient who is awake, alert, pm1 and in no acute distress. Head/Face: Normocephalic, atraumatic. Eyes: Pupils equal round and reactive to light, extra-ocular motions intact. Lids and lashes normal. Conjunctiva and sclera are non-icteric and not injected. Cornea within normal limits. Periorbital areas with no swelling, redness, or edema. ENT: Nares patent. No nasal discharge, no septal abnormalities noted. Tympanic membranes are normal and external auditory canals are clear. Oropharynx with no redness, swelling, or masses, exudates, or evidence of obstruction, uvula midline. Mucous membranes moist. Neck: Trachea midline, no thyromegaly or masses palpated, and no cervical lymphadenopathy. Supple, full range of motion without nuchal rigidity, or vertebral point tenderness. No Meningismus. Chest/axilla: Normal chest wall appearance and motion. Nontender with no deformity. No lesions are appreciated. Respiratory: Lungs have equal breath sounds bilaterally, clear to auscultation and percussion. No rales, rhonchi or wheezes noted. No increased work of breathing, no retractions or nasal flaring. Abdomen/GI: Soft, non-tender, with normal bowel sounds. No distension or tympany. No guarding or rebound. No evidence of tenderness throughout. Back: No spinal tenderness. No costovertebral tenderness. Full range of motion. 15:29 Skin: Warm, dry with normal turgor. Normal color with no rashes, no lesions, and no evidence of cellulitis. MS/ Extremity: Pulses equal, no cyanosis. Neurovascular intact. Full, normal range of motion. 15:29 Cardiovascular: Rate: normal, Rhythm: irregular, Pulses: no pulse deficits are appreciated, Edema: is not appreciated. 15:29 Neuro: Orientation: is normal, Motor: moves all fours. Vital Signs: 12:12 BP 105 / 81; Pulse 109; Resp 20; Temp 98.3(O); Pulse Ox 96% on R/A; Weight 90.72 kg rb1 (R); Height 5 ft. 6 in. (167.64 cm); Pain 5/10; 13:12 BP 140 / 65; Pulse 88; Resp 21; Temp 98.1(O); Pulse Ox 95% ; Pain 2/10; rb1 14:23 BP 122 / 69; Pulse 81; Resp 22; Temp 98.6(O); Pulse Ox 96% ; Pain 5/10; rb1 15:02 BP 107 / 55; Pulse 92; Resp 21; Pulse Ox 95% on R/A; Pain 6/10; rb1 15:23 BP 94 / 70; Pulse 80; Resp 28; Temp 98.7; Pulse Ox 96% on R/A; Pain 5/10; rb1 16:13 BP 113 / 70; Pulse 77; Resp 20; Pulse Ox 97% ; sv 12:12 Body Mass Index 32.28 (90.72 kg, 167.64 cm) rb1 15:23 Pt. is feeling anxious. rb1 MDM: 12:47 Patient medically screened. pm1 14:43 Data reviewed: vital signs. Data interpreted: Pulse oximetry: on room air is 96 %. pm1 Interpretation: normal. Counseling: I had a detailed discussion with the patient and/or guardian regarding: the historical points, exam findings, and any diagnostic results supporting the discharge/admit diagnosis, lab results, radiology results, the need for further work-up and treatment in the hospital. 14:51 Physician consultation: Danilo Felix MD was called at 14:51, was contacted at 14:51, pm1 regarding admission, patient's condition. 15:17 ED course: Patient reported chest pain 4/10. Patient given nitro SL and chest pain pm1 resolved with one dose. 15:43 ED course: Patient does not appear septic, therefore fluids were not ordered. My pm1 impression is that the patient's presentation of shortness of breath is cardiac related, atrial fibrillation with volume overload. 12/20 12:58 Order name: Basic Metabolic Panel; Complete Time: 14:27 pm1 12/20 12:58 Order name: CBC with Diff; Complete Time: 14:27 pm1 12/20 12:58 Order name: LFT's; Complete Time: 14:27 pm1 12/20 12:58 Order name: Magnesium; Complete Time: 14:27 pm1 12/20 12:58 Order name: NT PRO-BNP; Complete Time: 14:27 pm1 12/20 12:58 Order name: PT-INR; Complete Time: 14:27 pm1 12/20 12:58 Order name: Troponin (emerg Dept Use Only); Complete Time: 14:27 pm1 12/20 12:58 Order name: XRAY Chest (1 view); Complete Time: 14:51 pm1 12/20 14:40 Order name: Procalcitonin; Complete Time: 15:29 pm1 12/20 14:40 Order name: Lactate; Complete Time: 15:29 pm1 12/20 14:40 Order name: Blood Culture Adult (2) pm1 12/20 14:43 Order name: Flu; Complete Time: 15:29 pm1 12/20 16:11 Order name: Troponin (emerg Dept Use Only) sv 12/20 12:58 Order name: EKG; Complete Time: 13:00 pm1 12/20 12:58 Order name: Cardiac monitoring; Complete Time: 14:50 pm1 12/20 12:58 Order name: EKG - Nurse/Tech; Complete Time: 14:50 pm1 12/20 12:58 Order name: IV Saline Lock; Complete Time: 14:50 pm1 12/20 12:58 Order name: Labs collected and sent; Complete Time: 14:50 pm1 12/20 12:58 Order name: O2 Per Protocol; Complete Time: 14:50 pm1 12/20 12:58 Order name: O2 Sat Monitoring; Complete Time: 14:50 pm1 Administered Medications: 14:40 Drug: Magnesium Sulfate 1 grams Route: IVPB; Infused Over: 1 hrs; Site: right sv antecubital; 14:40 Drug: Potassium Chloride 20 mEq Route: IV; Rate: calculated rate; Site: right forearm; sv 14:40 Drug: NS 0.9% 1000 ml Route: IV; Rate: 50 ml/hr; Site: right forearm; sv 15:00 Drug: Potassium Effervescent Tablet 50 mEq Route: PO; rb1 15:00 Drug: Lovenox 1 mg/kg Route: Sub-Q; Site: right lower abdomen; rb1 15:12 Drug: Nitrostat 0.4 mg Route: Sublingual; rb1 15:18 Follow up: Response: No adverse reaction; Pain is decreased rb1 16:33 Drug: Rocephin 1 grams Route: IV; Rate: calculated rate; Site: right antecubital; sv Disposition: 12/21 06:54 Co-signature as Attending Physician, Rafael Jimenez MD I agree with the assessment and kdr plan of care. Disposition: 12/20/18 14:50 Hospitalization ordered by Danilo Felix for Inpatient Admission. Preliminary diagnosis are Non-ST elevation (NSTEMI) myocardial infarction, Atrial fibrillation and flutter. - Bed requested for Telemetry/MedSurg (Inpatient). - Status is Inpatient Admission. sv - Condition is Stable. - Problem is new. - Symptoms have improved. UTI on Admission? No Signatures: Dispatcher [employer] EDMS Darling Gregory RN RN kl Verde, Stephanie, RN RN sv Rittger, Kevin, MD MD kdr Barber, Rebecca, RN RN rb1 Rahul Morrison, MARCEL ASSISTANT GOLF COURSE SUPERINTENDENT pm1 Theresa Kumar Corrections: (The following items were deleted from the chart) 12/20 15:39 14:50 Hospitalization Ordered by Danilo Felix MD for Inpatient Admission. Preliminary eb diagnosis is Non-ST elevation (NSTEMI) myocardial infarction; Atrial fibrillation and flutter. Bed requested for Telemetry/MedSurg (Inpatient). Status is Inpatient Admission. Condition is Stable. Problem is new. Symptoms have improved. UTI on Admission? No. pm1 15:39 15:39 12/20/2018 14:50 Hospitalization Ordered by Danilo Felix MD for Inpatient kl Admission. Preliminary diagnosis is Non-ST elevation (NSTEMI) myocardial infarction; Atrial fibrillation and flutter. Bed requested for Telemetry/MedSurg (Inpatient). Status is Inpatient Admission. Condition is Stable. Problem is new. Symptoms have improved. UTI on Admission? No. eb 16:35 15:39 12/20/2018 14:50 Hospitalization Ordered by Danilo Felix MD for Inpatient sv Admission. Preliminary diagnosis is Non-ST elevation (NSTEMI) myocardial infarction; Atrial fibrillation and flutter. Bed requested for Telemetry/MedSurg (Inpatient). Status is Inpatient Admission. Condition is Stable. Problem is new. Symptoms have improved. UTI on Admission? No. kl
[2018-12-20] MEDS ORDERED: ENOXAPARIN 100 MG/ML SYR SQ ONE (15:06)
[2018-12-20] MEDS ORDERED: POTASSIUM 25 MEQ EFFERV TAB ONE (15:06)
--- NOTE | 2018-12-20 15:54 | P.HP ---
Certification for Inpatient Patient admitted to: Inpatient Practitioner: I am a practitioner with admitting privileges, knowledge of patient current condition, hospital course, and medical plan of care. Services: Services provided to patient in accordance with Admission requirements found in Title 42 Section 412.3 of the Code of Federal Regulations Patient History Date of Service: 12/20/18 Reason for admission: Shortness of breath History of Present Illness: This is a 83-year-old female with history of hypertension, asthma admitted for shortness of breath. Per patient, she has been having shortness of breath the past 3 months that was progressively worsening and worse this morning. About 3 weeks ago she did see her primary care physician and had a chest x-ray done which was suspicious for fluid overload. She was given Lasix and her breathing did improve slightly. She started developing subjective fevers after that and antibiotic was called in. This morning, patient's shortness of breath got really worse and she was sent to the emergency room by her primary care physician. In the ER, patient's initial blood pressure was 105/81, she was tachycardic at 10:09 a.m., respirations of 20, afebrile at 98.3 and satting 96% on room air. Her BMI is 32.28. Her lab work was remarkable for WBC count of 15, potassium low at 2.6, lactic acid 3.1, troponin elevated at 1.83 and a BNP elevated at 17, 375. A chest x-ray done in the ER was evident with extensive chronic interstitial lung disease, questionable infiltrate along with cardiomegaly. At the time of my exam, patient was alert oriented x3, rate controlled atrial fibrillation and in mild to moderate distress. She was admitted for further management of her shortness of breath along with atrial fibrillation. Allergies No Known Allergies Allergy (Unverified 12/20/18 16:58) Home Medications: Albuterol Sulfate [Proair Hfa] 2 puff IH Q4H PRN 12/20/18 Budesonide/Formoterol Fumarate [Symbicort 160-4.5 Mcg Inhaler] 2 puff IH BID 05/02 Indapamide [Lozol] 2.5 mg PO DAILY 12/20/18 Lansoprazole 1 tab PO BEDTIME 12/20/18 Levothyroxine Sodium 50 mcg PO [id number] 12/20/18 Losartan Potassium 1 tab PO DAILY 12/20/18 Metoprolol Succinate [Toprol Xl] 50 mg PO DAILY 12/20/18 Montelukast [Singulair*] 1 tab PO DAILY 12/20/18 Zolpidem Tartrate [Zolpidem Tartrate ER] 6.25 mg PO BEDTIME PRN 12/20/18 - Past Medical/Surgical History Diabetic: No -: Hypertension -: Asthma -: Hysterectomy -: Cholecystectomy - Family History Mother -: Hypertension, Stroke Father -: Heart disease, Other (see notes) Notes: NE - Social History Alcohol use: No Review of Systems 10-point ROS is otherwise unremarkable Physical Examination - Physical Exam General: Alert, Mild distress, Moderate distress HEENT: Atraumatic, PERRLA, Mucous membr. moist/pink, EOMI, Sclerae nonicteric Neck: Supple, 2+ carotid pulse no bruit, No LAD, Without JVD or thyroid abnormality Respiratory: Clear to auscultation bilaterally, Normal air movement Cardiovascular: Normal S1 S2, Irregular heart rate/rhythm (A-fib, rate controlled) Gastrointestinal: Normal bowel sounds, No tenderness Integumentary: No rashes Neurological: Normal gait, Normal speech, Normal strength at 5/5 x4 extr, Normal tone, Normal affect - Studies Laboratory Data (last 24 hrs) 12/20/18 13:02: PT 13.2 H, INR 1.12 12/20/18 13:02: WBC 15.0 H, Hgb 15.9 H, Hct 48.9 H, Plt Count 323 12/20/18 13:02: Sodium 135 L, Potassium 2.6 L*, BUN 28 H, Creatinine 1.16, Glucose 214 H, Magnesium 1.7 L, Total Bilirubin 2.7 H, AST 58 H, ALT 49, Alkaline Phosphatase 110 Microbiology Data (last 24 hrs): 12/20/18 14:47 Nasopharnyx Influenza Type A Antigen Screen - Final 12/20/18 14:47 Nasopharnyx Influenza Type B Antigen Screen - Final Assessment and Plan - Problems (Diagnosis) (1) Dyspnea Current Visit: Yes Status: Acute Plan: Likely secondary to atrial fibrillation versus volume overload versus asthma exacerbation Echo ordered, pending Provide oxygen as needed per protocol Breathing treatments with Xopenex as needed. Qualifiers: Dyspnea type: unspecified Qualified Code(s): R06.00 - Dyspnea, unspecified (2) Atrial fibrillation Current Visit: Yes Status: Acute Plan: Admit to floor w/ tele. Patient is currently rate controlled;continue home metoprolol Continue anticoagulation Echo ordered, pending Cardiology consult, awaiting recommendations. Qualifiers: Atrial fibrillation type: paroxysmal Qualified Code(s): I48.0 - Paroxysmal atrial fibrillation (3) Elevated troponin Current Visit: Yes Status: Acute Plan: Likely secondary to volume overload vs atrial fibrillation vs NSTEMI Patient currently denying any chest pain, EKG with AFib with PVCs. Cardiology consulted Continue to monitor and trend troponins. (4) Leukocytosis Current Visit: Yes Status: Acute Plan: Likely reactive. We will continue to Qualifiers: Leukocytosis type: unspecified Qualified Code(s): D72.829 - Elevated white blood cell count, unspecified (5) Hypokalemia Current Visit: Yes Status: Acute Plan: Likely secondary to the Lasix treatment the patient Deborah to. Replace per protocol and monitor (6) Hypertension Current Visit: No Status: Chronic Plan: Continue home medications Qualifiers: Hypertension type: essential hypertension Qualified Code(s): I10 - Essential (primary) hypertension (7) Asthma Current Visit: No Status: Chronic Plan: Will continue home inhalers and breathing treatment as needed Qualifiers: Asthma severity: mild Asthma persistence: intermittent Asthma complication type: uncomplicated Qualified Code(s): J45.20 - Mild intermittent asthma, uncomplicated (8) Debility Current Visit: Yes Status: Acute Plan: Physical therapy consult placed (9) Obesity (BMI 30.0-34.9) Current Visit: No Status: Chronic - Plan DVT prophylaxis: Lovenox GI prophylaxis: None Diet: Heart healthy Disposition: Admit to floor, pending symptomatic improvement and cardiology recommendations - Advance Directives Does patient have a Living Will: No Does patient have a Durable POA for Healthcare: No Time Spent Managing Pts Care (In Minutes): 55
[2018-12-20] MEDS ORDERED: CEFTRIAXONE/SWI 1gm 1 GM/10 ML SYR ONE (16:19)
[2018-12-20] MEDS ORDERED: ONDANSETRON 4 MG/2 ML VIAL IV PRN (16:59)
[2018-12-20] MEDS: ACETAMINOPHEN 500 MG TAB PO PRN (18:29)
[2018-12-20] MEDS: PANTOPRAZOLE 40MG TABLET PO SCH (20:19)
[2018-12-20] MEDS: ZOLPIDEM TARTRATE 5 MG TABLET PO PRN (20:19)
[2018-12-20] MEDS: HOME MED 1 EA UNK (Budesonide/Formoterol Fumarate [Symbicort 160-4.5 Mcg Inhaler] 2 PUFF) IH SCH (20:20)
[2018-12-20] MEDS: IPRATROPIUM BROM 0.5MG/2.5ML NEB PRN (21:05)
[2018-12-20] MEDS: ALBUTEROL 2.5 MG/3 ML NEB SOL NEB PRN (21:05)
[2018-12-21] MEDS ORDERED: POTASSIUM 25 MEQ EFFERV TAB PO ONE ×2 (01:26→07:19)
[2018-12-21 03:39] LABS: Urine Appearance CLOUDY; Urine Blood 1+ (NEG); Urine Color ORANGE; Urine Glucose NEGATIVE (NEG); Urine Protein 3+ (NEG); Urine Specific Gravity >=1.030 (1.005-1.030); Urine pH 5.5 (5.0-7.0)
[2018-12-21] MEDS: ACETAMINOPHEN 500 MG TAB PO PRN ×2 (03:42→19:57)
[2018-12-21 03:45] LABS: Urine Bilirubin NEGATIVE (NEG); Urine Microscopic Reflex ORDER UMIC
[2018-12-21] MEDS ORDERED: LORazepam 2 MG/ML VIAL IV ONE (04:41)
[2018-12-21] MEDS ORDERED: MORPHINE 2 MG/ML SYR IV PRN (04:42)
[2018-12-21 04:50] LABS: Urine Bacteria <20 /HPF (<20); Urine Culture Reflex Order REFLEXED; Urine RBC <5 /HPF (NONE SEEN)
[2018-12-21] MEDS ORDERED: METOPROLOL TARTRATE 5 MG/5 ML INJ IV ONE (05:29)
[2018-12-21 05:37] LABS: Absolute Lymphocytes (CBC) 2.3 K/uL (0.7-4.9); Absolute Monocytes 0.9 K/uL (0.1-1.3); Absolute Neutrophil 13.5 K/uL (1.8-8.0); Basophils % 0.2 % (0-1.3); Eosinophils % 0.4 % (0-4.4); Hematocrit 47.1 % (36.0-45.0); Lymphocytes % 13.7 % (15.3-44.8); MPV 9.4 fL (7.6-11.3); Monocytes % 5.3 % (3.3-12.3); RBC Red Blood Cell Count 5.43 M/uL (3.86-4.86)
[2018-12-21 05:55] LABS: Phosphorus 4.3 mg/dL (2.5-4.9)
[2018-12-21] MEDS ORDERED: NA CHLORIDE 0.9% 1,000 ML IV SCH (06:00)
[2018-12-21 06:03] LABS: Albumin 3.3 g/dL (3.4-5.0); Bilirubin Total 2.6 mg/dL (0.2-1.0); Potassium 3.4 mmol/L (3.5-5.1); Protein, Total 6.9 g/dL (6.4-8.2)
[2018-12-21 06:06] LABS: Troponin I 1.87 ng/mL (0.0-0.045)
[2018-12-21] MEDS: LEVOTHYROXINE SOD 0.05 MG TABLET PO SCH (06:18)
--- NOTE | 2018-12-21 07:13 | EKG ---
Test Date: 2018-12-20 Test Time: 15:17:54 Chiropractic Practice Manager: ROGER MEASUREMENT RESULTS: Intervals: Rate: 84 ND: QRSD: 144 QT: 444 QTc: 524 [place]: P: ND: QRS: -66 T: 101 INTERPRETIVE STATEMENTS: Atrial fibrillation with premature ventricular or aberrantly conducted complexes Left axis deviation Left bundle branch block Abnormal ECG Compared to ECG 12/20/2018 13:55:35 No significant changes Electronically Signed On 12-21-18 07:11:27 CDT by Edin Dukes
--- NOTE | 2018-12-21 07:14 | EKG ---
Test Date: 2018-12-20 Test Time: 13:55:35 Linemarker: ROGER MEASUREMENT RESULTS: Intervals: Rate: 81 VA: QRSD: 154 QT: 480 QTc: 557 [place]: P: VA: QRS: -61 T: 103 INTERPRETIVE STATEMENTS: Atrial fibrillation with premature ventricular or aberrantly conducted complexes Left axis deviation Left bundle branch block Abnormal ECG Compared to ECG 07/11/2018 14:52:41 Left bundle-branch block now present Myocardial infarct finding no longer present T-wave abnormality no longer present Possible ischemia no longer present Electronically Signed On 12-21-18 07:11:34 CDT by Edin Dukes
[2018-12-21] MEDS ORDERED: SOTALOL HCL 80 MG TAB PO SCH (07:37)
[2018-12-21] MEDS: MONTELUKAST 10 MG TAB PO SCH (07:58)
[2018-12-21] MEDS: HOME MED 1 EA UNK (Budesonide/Formoterol Fumarate [Symbicort 160-4.5 Mcg Inhaler] 2 PUFF) IH SCH ×2 (07:59→19:58)
[2018-12-21 08:08] LABS: Anisocytosis 1+; Blood Morphology Comment NOTED (NOT SEEN); Platelet Estimate ADEQ
[2018-12-21] MEDS: INDAPAMIDE 1.25 MG TAB PO SCH (08:33)
[2018-12-21] MEDS: ENOXAPARIN 40 MG/0.4 ML SQ SCH (08:33)
[2018-12-21] MEDS ORDERED: LOSARTAN POTASSIUM 50 MG TABLET PO SCH (09:00)
[2018-12-21] MEDS ORDERED: METOPROLOL XL 50 MG TAB PO SCH (09:00)
[2018-12-21] MEDS ORDERED: NA CHLORIDE 0.9% 500 ML IV ONE (12:54)
[2018-12-21] MEDS: NA CHLORIDE 0.9% 1,000 ML IV SCH ×2 (13:00→19:57)
--- NOTE | 2018-12-21 16:00 | P.PN ---
Subjective Date of Service: 12/21/18 Chief Complaint: Shortness of breath Subjective: No new changes Patient seen and examined at bedside. Family at bedside. Chart reviewed and case discussed with nursing staff. Patient reports feeling okay this morning. Denies any chest pain, sob, dizziness , nausea or vomiting. She just reports feeling sleepy this am. Review of Systems 10-point ROS is otherwise unremarkable Physical Examination - Vital Signs Temperature: 97.0 F Blood Pressure: 100/71 Pulse: 60 Respirations: 20 Pulse Ox (%): 96 - Physical Exam General: Alert, Mild distress, Other (elderly) HEENT: Atraumatic, PERRLA, EOMI Neck: Supple, JVD not distended Respiratory: Clear to auscultation bilaterally, Normal air movement Cardiovascular: Irregular heart rate/rhythm (A-fib) - Studies Microbiology Data (last 24 hrs): 12/20/18 14:47 Nasopharnyx Influenza Type A Antigen Screen - Final 12/20/18 14:47 Nasopharnyx Influenza Type B Antigen Screen - Final Assessment And Plan - Current Problems (Diagnosis) (1) Dyspnea Current Visit: Yes Status: Acute Plan: Likely secondary to atrial fibrillation versus volume overload versus asthma exacerbation - Improved Echo ordered, pending Provide oxygen as needed per protocol Breathing treatments with Xopenex as needed. Qualifiers: Dyspnea type: unspecified Qualified Code(s): R06.00 - Dyspnea, unspecified (2) Atrial fibrillation Current Visit: Yes Status: Acute Plan: Admit to floor w/ tele. Patient is currently rate controlled;continue home metoprolol Continue anticoagulation Echo ordered, pending Cardiology consult, Recommendations appreciated Qualifiers: Atrial fibrillation type: paroxysmal Qualified Code(s): I48.0 - Paroxysmal atrial fibrillation (3) Elevated troponin Current Visit: Yes Status: Acute Plan: Likely secondary to volume overload vs atrial fibrillation vs NSTEMI Patient currently denying any chest pain, EKG with AFib with PVCs. Cardiology consulted Continue to monitor and trend troponins. (4) Leukocytosis Current Visit: Yes Status: Acute Plan: Likely reactive. We will continue to Qualifiers: Leukocytosis type: unspecified Qualified Code(s): D72.829 - Elevated white blood cell count, unspecified (5) Hypokalemia Current Visit: Yes Status: Acute Plan: Likely secondary to the Lasix treatment the patient Deborah to. Replace per protocol and monitor (6) Hypertension Current Visit: No Status: Chronic Plan: Continue home medications Qualifiers: Hypertension type: essential hypertension Qualified Code(s): I10 - Essential (primary) hypertension (7) Asthma Current Visit: No Status: Chronic Plan: Will continue home inhalers and breathing treatment as needed Qualifiers: Asthma severity: mild Asthma persistence: intermittent Asthma complication type: uncomplicated Qualified Code(s): J45.20 - Mild intermittent asthma, uncomplicated (8) Debility Current Visit: Yes Status: Acute Plan: Physical therapy consult placed SW consult - Patient may benefit from SNF placement (9) Obesity (BMI 30.0-34.9) Current Visit: No Status: Chronic (10) Hypotension Current Visit: Yes Status: Acute Plan: likely secondary to medications. Received a call from nurse regarding BP being 74/52, pt complaing on being sleepy. Denied any dizziness, lightheadedness, cp. Overnight, pt recieved IV lopressor x 1, ativan x1, cozaar, indapamide and betapace. Patient currently on NS at 75cc/hr, asked to increase rate to 100. Recheck BP and inform me. Nurse called back with BP recheck, still low BP. Asked to give a500 mg bolus. Recieed another call regarding HR in the 40's. Revenue Director was informed and he decreased betapace to 40 mg BID. Called to check on patient, HR still 40-50's but BP has now improved to 100/71. Hold Cozaar and indapamdide today. Hold evening betapace dosage if HR less than 60. Qualifiers: Hypotension type: hypotension due to drug Qualified Code(s): I95.2 - Hypotension due to drugs (11) Bradycardia Current Visit: Yes Status: Acute - Plan DVT prophylaxis: Lovenox GI prophylaxis: None Diet: Heart healthy Disposition: pending symptomatic improvement, cardiology recommendations and placement,
--- NOTE | 2018-12-21 17:07 | ECHO ---
HEIGHT: 5 ft 6 in WEIGHT: 199 lb 8 oz DATE OF STUDY: 12/21/[address]: Danilo Felix MD 2-DIMENSIONAL: YES M.MODE: YES DOPPLER: YES COLOR FLOW: YES TDS: NO PORTABLE: NO DEFINITY: NO BUBBLE STUDY: NO DIAGNOSIS: VOLUME OVERLOAD CARDIAC HISTORY: CATHERIZATION: NO SURGERY: NO PROSTHETIC VALVE: NO PACEMAKER: NO MEASUREMENTS (cm) DIASTOLIC (NORMALS) SYSTOLIC (NORMALS) IVSd 1.3 (0.6-1.2) LA Diam 3.7 (1.9-4.0) LVEF 27% LVIDd 6.5 (3.5-5.7) LVIDs 5.7 (2.0-3.5) %FS 13% LVPWd 1.3 (0.6-1.2) Ao Diam 2.4 (2.0-3.7) 2 DIMENSIONAL ASSESSMENT: RIGHT ATRIUM: NORMAL LEFT ATRIUM: DILATED RIGHT VENTRICLE: NORMAL LEFT VENTRICLE: DILATED TRICUSPID VALVE: NORMAL MITRAL VALVE: MITRAL ANNULAR CALCIFICATION PULMONIC VALVE: NORMAL AORTIC VALVE: NORMAL PERICARDIAL EFFUSION: NONE AORTIC ROOT: NORMAL LEFT VENTRICULAR WALL MOTION: SEVERE GLOBAL HYPOKINESIS. DOPPLER/COLOR FLOW: MILD TRICUSPID REGURGITATION. COMMENTS: MILD TRICUSPID REGURGITATION. MITRAL ANNULAR CALCIFICATION. SEVERE GLOBAL HYPOKINESIS. EJECTION FRACTION 20-25%. NO THROMBUS. TECHNOLOGIST: CONSUELO TSANG
[2018-12-21] MEDS: SOTALOL HCL 80 MG TAB PO SCH (18:00)
[2018-12-21] MEDS: PANTOPRAZOLE 40MG TABLET PO SCH (19:57)
[2018-12-21] MEDS: ZOLPIDEM TARTRATE 5 MG TABLET PO PRN (19:57)
[2018-12-21] MEDS ORDERED: HYDROCORTISONE SUC 100 MG INJ IV ONE ×2 (21:57→23:00)
[2018-12-21] MEDS ORDERED: NA CHLORIDE 0.9% 250 ML IV ONE (21:58)
[2018-12-21] MEDS ORDERED: ALBUMIN HUMAN 25% 100 ML IV ONE (21:59)
[2018-12-21] MEDS ORDERED: WATER FOR INJ,STERILE 10 ML ONE (22:45)
[2018-12-21] MEDS ORDERED: ALBUMIN HUMAN 25% 50 ML IV ONE ×2 (23:34→23:37)
[2018-12-22] MEDS: IPRATROPIUM BROM 0.5MG/2.5ML NEB PRN (04:30)
[2018-12-22] MEDS: ALBUTEROL 2.5 MG/3 ML NEB SOL NEB PRN (04:30)
[2018-12-22] MEDS: NA CHLORIDE 0.9% 1,000 ML IV SCH (05:09)
[2018-12-22] MEDS: LEVOTHYROXINE SOD 0.05 MG TABLET PO SCH (05:24)
[2018-12-22] MEDS: SOTALOL HCL 80 MG TAB PO SCH (05:25)
[2018-12-22 06:09] LABS: Absolute Lymphocytes (CBC) 1.8 K/uL (0.7-4.9); Absolute Neutrophil 12.2 K/uL (1.8-8.0); Basophils % 0.1 % (0-1.3); Eosinophils % 0.1 % (0-4.4); Lymphocytes % 12.2 % (15.3-44.8); MPV 9.5 fL (7.6-11.3); Monocytes % 6.6 % (3.3-12.3); RBC Red Blood Cell Count 4.86 M/uL (3.86-4.86)
[2018-12-22 06:25] LABS: Albumin 3.1 g/dL (3.4-5.0); Bilirubin Total 2.3 mg/dL (0.2-1.0); Potassium 3.7 mmol/L (3.5-5.1); Protein, Total 5.9 g/dL (6.4-8.2)
[2018-12-22] MEDS: HOME MED 1 EA UNK (Budesonide/Formoterol Fumarate [Symbicort 160-4.5 Mcg Inhaler] 2 PUFF) IH SCH (09:00)
[2018-12-22] MEDS ORDERED: POTASSIUM 25 MEQ EFFERV TAB PO ONE (09:00)
[2018-12-22] MEDS: INDAPAMIDE 1.25 MG TAB PO SCH (09:09)
[2018-12-22] MEDS: ENOXAPARIN 40 MG/0.4 ML SQ SCH (09:10)
[2018-12-22] MEDS: MONTELUKAST 10 MG TAB PO SCH (09:11)
[2018-12-22] MEDS: ACETAMINOPHEN 500 MG TAB PO PRN ×2 (10:30→20:30)
--- NOTE | 2018-12-22 13:10 | CON ---
Date of Consultation: 12/21/2018 Reason For Consultation: Atrial fibrillation and shortness of breath. History Of Present Illness: Ms. Mckinnon is 83. She has a history of hypertension, hypothyroidism, gastroesophageal reflux disease and asthma. She came into the hospital with shortness of breath and was found to be in atrial fibrillation with rapid ventricular response. She also had a white count o f 17,000. Her creatinine was 1.57. She was hypokalemic at 2.8, which was supplemented to 3.4. Her troponin was 1.87. Her BNP was 17,375. Allergies: NONE. Review of Systems: Negative. Social History: Negative. Family History: Noncontributory. Medications: At home include multiple inhalers. She also takes Lozol, lansoprazole, Synthroid, metf ormin, losartan, and Singulair. Physical Examination: General: Ms. Mckinnon was in mild respiratory distress and atrial fibrillation with rapid ventricula r response. HEENT: Negative. Neck: Supple with no bruit. Chest: Revealed expiratory wheezing bilaterally and some rales both bases. Cardiac: Revealed atrial fibrillation. Abdomen: Obese. Extremities: Revealed no clubbing or cyanosis. She had 1+ edema. Impression And Plan: 1.New-onset atrial fibrillation. She has received 1 dose of IV metoprolol. She received metoprolol p.o. 50 mg daily which is her normal medication. I am going to switch her to Betapace 80 mg b.i.d. I think, she needs to be on Lovenox. An echocardiogram is pending. TSH is 11 that may need to be a ddressed as well. 2.Elevated troponin and BNP secondary to atrial fibrillation and possible congestive heart failure. We will see what the echo shows. We may need to consider a heart catheterization on Ms. Mckinnon wh en she recovers well from this. 3.Elevated white count, possible bronchitis. 4.Renal insufficiency. 5.Hypokalemia, being corrected. I think she needs to get off the Lozol. 6.Gastroesophageal reflux disease. 7.Hypothyroidism. 8.Hypertension, well controlled. 9.Asthma, on Singulair. NB/MODL Voice ID: [id number] Report ID: [id number]
--- NOTE | 2018-12-22 13:19 | P.PN ---
Subjective Date of Service: 12/22/18 Chief Complaint: Shortness of breath Subjective: No new changes Patient seen and examined at bedside. Family at bedside. Chart reviewed and case discussed with nursing staff. Patient reports feeling okay this morning. States she has episodes of panic attacks. Denies any chest pain, sob, dizziness, nausea or vomiting. She just reports feeling sleepy this am. Review of Systems 10-point ROS is otherwise unremarkable Physical Examination - Vital Signs Temperature: 96.6 F Blood Pressure: 114/62 Pulse: 57 Respirations: 18 Pulse Ox (%): 98 - Physical Exam General: Alert, In no apparent distress, Oriented x3 HEENT: Atraumatic, PERRLA, EOMI Neck: Supple, JVD not distended Respiratory: Clear to auscultation bilaterally, Normal air movement Cardiovascular: Normal S1 S2, Irregular heart rate/rhythm (AFib) Gastrointestinal: Normal bowel sounds, No tenderness Musculoskeletal: No tenderness Integumentary: No rashes Neurological: Normal speech, Normal tone, Normal affect Lymphatics: No axilla or inguinal lymphadenopathy Assessment And Plan - Current Problems (Diagnosis) (1) Dyspnea Current Visit: Yes Status: Acute Plan: Likely secondary to atrial fibrillation versus volume overload versus asthma exacerbation - Improved Echo with ejection fraction 27%, global hypokinesis Provide oxygen as needed per protocol Breathing treatments with Xopenex as needed.. No evidence of volume overload at this time. May require IV Lasix if not improved. Repeat chest x-ray tomorrow Qualifiers: Dyspnea type: unspecified Qualified Code(s): R06.00 - Dyspnea, unspecified (2) Atrial fibrillation Current Visit: Yes Status: Acute Plan: Patient is currently rate controlled, actually bradycardic. See plan below. Continue anticoagulation Cardiology consult, Recommendations appreciated Qualifiers: Atrial fibrillation type: paroxysmal Qualified Code(s): I48.0 - Paroxysmal atrial fibrillation (3) Elevated troponin Current Visit: Yes Status: Acute Plan: Likely secondary to volume overload vs atrial fibrillation vs NSTEMI Patient currently denying any chest pain, EKG with AFib with PVCs. Cardiology consulted Continue to monitor and trend troponins. (4) Leukocytosis Current Visit: Yes Status: Acute Plan: Likely reactive. We will continue to Qualifiers: Leukocytosis type: unspecified Qualified Code(s): D72.829 - Elevated white blood cell count, unspecified (5) Hypokalemia Current Visit: Yes Status: Acute Plan: Likely secondary to the Lasix treatment the patient Deborah to. Replace per protocol and monitor (6) Hypertension Current Visit: No Status: Chronic Plan: Continue home medications Qualifiers: Hypertension type: essential hypertension Qualified Code(s): I10 - Essential (primary) hypertension (7) Asthma Current Visit: No Status: Chronic Plan: Will continue home inhalers and breathing treatment as needed Qualifiers: Asthma severity: mild Asthma persistence: intermittent Asthma complication type: uncomplicated Qualified Code(s): J45.20 - Mild intermittent asthma, uncomplicated (8) Debility Current Visit: Yes Status: Acute Plan: Physical therapy consult placed SW consult - Patient may benefit from SNF placement (9) Obesity (BMI 30.0-34.9) Current Visit: No Status: Chronic (10) Hypotension Current Visit: Yes Status: Acute Plan: likely secondary to medications. Improved today. Continue to hold blood pressure medications. Discontinue Betapace [12/21/18: Received a call from nurse regarding BP being 74/52, pt complaing on being sleepy. Denied any dizziness, lightheadedness, cp. Overnight, pt recieved IV lopressor x 1, ativan x1, cozaar, indapamide and betapace. Patient currently on NS at 75cc/hr, asked to increase rate to 100. Recheck BP and inform me. Nurse called back with BP recheck, still low BP. Asked to give a500 mg bolus. Recieed another call regarding HR in the 40's. Superintendent Distribution was informed and he decreased betapace to 40 mg BID. Called to check on patient, HR still 40-50's but BP has now improved to 100/71. Hold Cozaar and indapamdide today. Hold evening betapace dosage if HR less than 60. ] Qualifiers: Hypotension type: hypotension due to drug Qualified Code(s): I95.2 - Hypotension due to drugs (11) Bradycardia Current Visit: Yes Status: Acute - Plan DVT prophylaxis: Lovenox GI prophylaxis: None Diet: Heart healthy Disposition: pending symptomatic improvement, cardiology recommendations and placement,
--- NOTE | 2018-12-22 13:52 | PN ---
Ms. Mckinnon had come in with atrial fibrillation and congestive heart failure. Her heart rate remai ns in the 40s even on Betapace 40 b.i.d. She remains in sinus and atrial fibrillation. She has a lo w ejection fraction. I think we need to consider anticoagulation with Eliquis and/or Xarelto. I thi nk we need to discontinue her Betapace and I need to think we should put her on a low-dose carvedilol for CHF. If the blood pressure elevates, she probably would be on an ROSIO inhibitor as well. There is apparently some plan for [facility] facility placement. I will continue to follow her. MIMI/RICH Voice ID: [id number] Report ID: [id number]
[2018-12-22] MEDS ORDERED: ALBUTEROL 90 MCG IH PRN (14:15)
[2018-12-22] MEDS: Symbicort 160-4.5 Mcg Inhaler IH SCH (20:20)
[2018-12-22] MEDS: ZOLPIDEM TARTRATE 5 MG TABLET PO PRN (20:30)
[2018-12-22] MEDS: PANTOPRAZOLE 40MG TABLET PO SCH (20:32)
[2018-12-23] MEDS: IPRATROPIUM BROM 0.5MG/2.5ML NEB PRN ×3 (01:10→19:55)
[2018-12-23] MEDS: ALBUTEROL 2.5 MG/3 ML NEB SOL NEB PRN ×3 (01:10→19:55)
[2018-12-23 05:46] LABS: Bilirubin Total 1.4 mg/dL (0.2-1.0); Potassium 3.2 mmol/L (3.5-5.1); Protein, Total 5.9 g/dL (6.4-8.2)
[2018-12-23 05:51] LABS: Absolute Lymphocytes (CBC) 1.7 K/uL (0.7-4.9); Absolute Monocytes 0.8 K/uL (0.1-1.3); Absolute Neutrophil 10.7 K/uL (1.8-8.0); Basophils % 0.1 % (0-1.3); Eosinophils % 0.2 % (0-4.4); Hematocrit 44.4 % (36.0-45.0); Lymphocytes % 12.9 % (15.3-44.8); MPV 9.4 fL (7.6-11.3); Monocytes % 6.3 % (3.3-12.3); RBC Red Blood Cell Count 5.16 M/uL (3.86-4.86)
[2018-12-23] MEDS: LEVOTHYROXINE SOD 0.05 MG TABLET PO SCH (06:11)
--- NOTE | 2018-12-23 07:26 | P.PN ---
Date of Service: 12/23/18 Called because pt with anxiety at 430-noted events of the day before. given ambien this evening. Will hold off on anxiolytics and await further evaluation. May benefit from SSRI.
[2018-12-23] MEDS: MONTELUKAST 10 MG TAB PO SCH (08:56)
[2018-12-23] MEDS: ENOXAPARIN 40 MG/0.4 ML SQ SCH (08:57)
[2018-12-23] MEDS: Symbicort 160-4.5 Mcg Inhaler IH SCH ×2 (08:57→20:02)
[2018-12-23] MEDS ORDERED: POTASSIUM 25 MEQ EFFERV TAB PO ONE (09:00)
[2018-12-23] MEDS: ACETAMINOPHEN 500 MG TAB PO PRN ×2 (11:53→17:35)
--- NOTE | 2018-12-23 12:52 | P.PN ---
Subjective Date of Service: 12/23/18 Chief Complaint: Shortness of breath Subjective: Improving Patient seen and examined at bedside. Family at bedside. Chart reviewed and case discussed with nursing staff. Patient reports feeling okay this morning. States she has episodes of panic attacks and the night. Denies any chest pain, sob, dizziness, nausea or vomiting. She just reports feeling sleepy this am. Review of Systems 10-point ROS is otherwise unremarkable Physical Examination - Vital Signs Temperature: 97.0 F Blood Pressure: 123/74 Pulse: 55 Respirations: 24 Pulse Ox (%): 98 - Physical Exam General: Alert, In no apparent distress, Other (Frail) HEENT: Atraumatic, PERRLA, EOMI Neck: Supple, JVD not distended Respiratory: Clear to auscultation bilaterally, Normal air movement Cardiovascular: Regular rate/rhythm, Normal S1 S2 Gastrointestinal: Normal bowel sounds, No tenderness Musculoskeletal: No tenderness Integumentary: No rashes Neurological: Normal speech, Normal tone, Normal affect Lymphatics: No axilla or inguinal lymphadenopathy Assessment And Plan - Current Problems (Diagnosis) (1) Dyspnea Current Visit: Yes Status: Acute Plan: Likely secondary to atrial fibrillation versus volume overload versus asthma exacerbation - Improved breathing Echo with ejection fraction 27%, global hypokinesis Provide oxygen as needed per protocol Breathing treatments with Xopenex as needed.. No evidence of volume overload at this time. Qualifiers: Dyspnea type: unspecified Qualified Code(s): R06.00 - Dyspnea, unspecified (2) Atrial fibrillation Current Visit: Yes Status: Acute Plan: Patient is currently rate controlled, heart rate improved. Continue anticoagulation and low-dose Coreg started by route inspector this morning Cardiology consult, Recommendations appreciated Qualifiers: Atrial fibrillation type: paroxysmal Qualified Code(s): I48.0 - Paroxysmal atrial fibrillation (3) Elevated troponin Current Visit: Yes Status: Acute Plan: Likely secondary to volume overload vs atrial fibrillation vs NSTEMI Troponin trended down, stable Patient continues to deny any chest pain Cardiology consulted, recommendations appreciated Continue to monitor (4) Leukocytosis Current Visit: Yes Status: Acute Plan: Likely reactive. Trending down Qualifiers: Leukocytosis type: unspecified Qualified Code(s): D72.829 - Elevated white blood cell count, unspecified (5) Hypokalemia Current Visit: Yes Status: Acute Plan: Likely secondary to the Lasix treatment the patient Deborah to. Replace per protocol and monitor (6) Hypertension Current Visit: No Status: Chronic Plan: Continue home medications Qualifiers: Hypertension type: essential hypertension Qualified Code(s): I10 - Essential (primary) hypertension (7) Asthma Current Visit: No Status: Chronic Plan: Will continue home inhalers and breathing treatment as needed Qualifiers: Asthma severity: mild Asthma persistence: intermittent Asthma complication type: uncomplicated Qualified Code(s): J45.20 - Mild intermittent asthma, uncomplicated (8) Debility Current Visit: Yes Status: Acute Plan: Physical therapy consult placed SW consult - Patient may benefit from SNF placement (9) Obesity (BMI 30.0-34.9) Current Visit: No Status: Chronic (10) Hypotension Current Visit: Yes Status: Acute Plan: likely secondary to medications. Blood pressure back to baseline now Continue to hold blood pressure medications. Discontinue Betapace. Patient started on low-dose carvedilol by Cardiology. Continue to monitor blood pressures [12/21/18: Received a call from nurse regarding BP being 74/52, pt complaing on being sleepy. Denied any dizziness, lightheadedness, cp. Overnight, pt recieved IV lopressor x 1, ativan x1, cozaar, indapamide and betapace. Patient currently on NS at 75cc/hr, asked to increase rate to 100. Recheck BP and inform me. Nurse called back with BP recheck, still low BP. Asked to give a500 mg bolus. Received another call regarding HR in the 40's. Special Needs Babysitter was informed and he decreased betapace to 40 mg BID. Called to check on patient, HR still 40-50's but BP has now improved to 100/71. Hold Cozaar and indapamdide today. Hold evening betapace dosage if HR less than 60. ] Qualifiers: Hypotension type: hypotension due to drug Qualified Code(s): I95.2 - Hypotension due to drugs (11) Bradycardia Current Visit: Yes Status: Acute Plan: Improved heart rate. Start low-dose carvedilol. Continue to monitor heart rate (12) Anxiety Current Visit: Yes Status: Acute Plan: Patient continues to have episodes of anxiety/panic attacks, especially at night. We would like to avoid IV and Ativan further anxiolytics drugs due to the FX on the blood pressure patient Clive does have Ambien as needed at night. Discussed with family regarding SSRI usage, we will try a low-dose Lexapro. Discussed that this may take a few weeks to take affect, though will continue to monitor. - Plan DVT prophylaxis: Lovenox GI prophylaxis: None Diet: Heart healthy Disposition: pending symptomatic improvement, cardiology recommendations and placement,
--- NOTE | 2018-12-23 14:38 | PN ---
Mrs. Mckinnon had come in with CHF, atrial fibrillation, low ejection fraction, initially hypotensive , now she is only on Lozol. Her Betapace was held because of bradycardia and hypotension. Today, he r blood pressure is about 120 systolic. I think with her atrial fibrillation and her low ejection fr action, I would like to put her on low-dose carvedilol, continue her other medications, but we will s ee how she does with the carvedilol. We may be able to add a low-dose ROSIO inhibitor. She also needs to be anticoagulated and I will discuss that further with her primary care. MIMI/RICH Voice ID: [id number] Report ID: [id number]
[2018-12-23] MEDS ORDERED: POTASSIUM CL SA 10 MEQ TAB PO ONE (17:09)
[2018-12-23] MEDS: CARVEDILOL 3.125 MG TAB PO SCH (17:33)
[2018-12-23] MEDS: ZOLPIDEM TARTRATE 5 MG TABLET PO PRN (20:01)
[2018-12-23] MEDS: PANTOPRAZOLE 40MG TABLET PO SCH (20:01)
[2018-12-23] MEDS ORDERED: LORAZEPAM 0.5 MG TABLET PO ONE (22:02)
[2018-12-24] MEDS: ACETAMINOPHEN 500 MG TAB PO PRN ×2 (03:08→14:09)
[2018-12-24 04:47] LABS: Potassium 3.6 mmol/L (3.5-5.1)
[2018-12-24] MEDS: CARVEDILOL 3.125 MG TAB PO SCH (05:16)
[2018-12-24] MEDS: LEVOTHYROXINE SOD 0.05 MG TABLET PO SCH (05:17)
[2018-12-24] MEDS ORDERED: POTASSIUM CL SA 10 MEQ TAB PO ONE (06:20)
[2018-12-24] MEDS ORDERED: ESCITALOPRAM 20 MG TAB PO SCH (09:00)
[2018-12-24] MEDS: Symbicort 160-4.5 Mcg Inhaler IH SCH (10:39)
[2018-12-24] MEDS: MONTELUKAST 10 MG TAB PO SCH (10:39)
[2018-12-24] MEDS: ENOXAPARIN 40 MG/0.4 ML SQ SCH (10:39)
[2018-12-24] MEDS: IPRATROPIUM BROM 0.5MG/2.5ML NEB PRN ×2 (11:16→17:15)
[2018-12-24] MEDS: ALBUTEROL 2.5 MG/3 ML NEB SOL NEB PRN ×2 (11:16→17:15)
--- NOTE | 2018-12-24 14:17 | P.DS ---
Admission Date: 12/20/18 Discharge Date: 12/24/18 Disposition: TRANSFER TO SHELTER Comment: [facility] longterm facility Discharge Condition: FAIR Reason for Admission: Shortness of breath Consultations: Cardiology - Problems (1) Dyspnea Current Visit: Yes Status: Acute Qualifiers: Dyspnea type: unspecified Qualified Code(s): R06.00 - Dyspnea, unspecified (2) Atrial fibrillation Current Visit: Yes Status: Acute Qualifiers: Atrial fibrillation type: paroxysmal Qualified Code(s): I48.0 - Paroxysmal atrial fibrillation (3) Elevated troponin Current Visit: Yes Status: Acute (4) Leukocytosis Current Visit: Yes Status: Acute Qualifiers: Leukocytosis type: unspecified Qualified Code(s): D72.829 - Elevated white blood cell count, unspecified (5) Hypokalemia Current Visit: Yes Status: Acute (6) Hypertension Current Visit: No Status: Chronic Qualifiers: Hypertension type: essential hypertension Qualified Code(s): I10 - Essential (primary) hypertension (7) Asthma Current Visit: No Status: Chronic Qualifiers: Asthma severity: mild Asthma persistence: intermittent Asthma complication type: uncomplicated Qualified Code(s): J45.20 - Mild intermittent asthma, uncomplicated (8) Debility Current Visit: Yes Status: Acute (9) Obesity (BMI 30.0-34.9) Current Visit: No Status: Chronic (10) Hypotension Current Visit: Yes Status: Acute Qualifiers: Hypotension type: hypotension due to drug Qualified Code(s): I95.2 - Hypotension due to drugs (11) Bradycardia Current Visit: Yes Status: Acute (12) Anxiety Current Visit: Yes Status: Acute Brief History of Present Illness: This is a 83-year-old female with history of hypertension, asthma admitted for shortness of breath. Per patient, she has been having shortness of breath the past 3 months that was progressively worsening and worse this morning. About 3 weeks ago she did see her primary care physician and had a chest x-ray done which was suspicious for fluid overload. She was given Lasix and her breathing did improve slightly. She started developing subjective fevers after that and antibiotic was called in. This morning, patient's shortness of breath got really worse and she was sent to the emergency room by her primary care physician. In the ER, patient's initial blood pressure was 105/81, she was tachycardic at 10:09 a.m., respirations of 20, afebrile at 98.3 and satting 96% on room air. Her BMI is 32.28. Her lab work was remarkable for WBC count of 15, potassium low at 2.6, lactic acid 3.1, troponin elevated at 1.83 and a BNP elevated at 17, 375. A chest x-ray done in the ER was evident with extensive chronic interstitial lung disease, questionable infiltrate along with cardiomegaly. At the time of my exam, patient was alert oriented x3, rate controlled atrial fibrillation and in mild to moderate distress. Hospital Course: She was admitted for further management of her shortness of breath along with atrial fibrillation. She was provided with breathing treatments, oxygen as needed. An echocardiogram was done, which showed ejection fraction of 27% and global hypokinesis. Cardiology was consulted. She was started on Betapace by Cardiology and her metoprolol was discontinued. It seems that patient continued to have episodes of anxiety/panic attack throughout the stay. Initially, she received IV lopressor x 1, ativan x1, cozaar, indapamide and betapace. This Dr. blood pressure down to 70s over 50s and patient was complaining of being sleepy. She was given a fluid bolus. Her heart rate also dropped into the 40s likely secondary to Betapace along with IV Lopressor. Her Betapace was decreased to 40 mg b.i.d.. Heart rate commutes remained low and therefore her Betapace was discontinued by cardiology. Once her blood pressure and heart rate stabilized, she was started on low-dose carvedilol. She tolerated this pretty well. Her heart rate and blood pressure remained stable afterwards. Her atrial fibrillation also remained rate controlled. Her troponin was elevated initially, trended down and remained stable. She continued to deny any chest pain throughout the stay. She was also hypokalemic. It was replaced per protocol and potassium levels remained stable after that. For her panic attacks/anxiety, she was started on low-dose Lexapro. She was instructed in recommended to follow up with the primary care physician for adjustment of medication and follow up. She was evaluated by physical therapy due to generalized weakness and debility. Per physical therapy recommendations, it was thought the patient would benefit greatly from longterm facility placement. Social work was consulted, patient was finally accepted at [facility] facility. She was cleared for discharge from cardiology point of view. She otherwise remained stable throughout the stay. Prior to discharge, she was alert oriented x3, weak but hemodynamically stable. Her blood pressure was stable, her atrial fibrillation was rate controlled. She was discharged to [facility] in a stable manner with a prescription for Eliquis, low-dose carvedilol and Lexapro. Her other medication changes included discontinuation of metoprolol. Her diagnoses and treatment plan were explained to her and the family at bedside. All questions were answered. Patient and family verbalized understanding. Patient was discharged in a safe stable manner to [facility]. Vital Signs/Physical Exam: Temp Pulse Resp BP Pulse Ox 96.9 F 86 18 132/98 H 100 12/24/18 12:00 12/24/18 12:00 12/24/18 12:00 12/24/18 12:00 12/24/18 12:00 General: Alert, In no apparent distress, Oriented x3, Obese, Other (Elderly frail) HEENT: Atraumatic, PERRLA, EOMI Neck: Supple, JVD not distended Respiratory: Clear to auscultation bilaterally, Normal air movement Cardiovascular: Normal S1 S2, Irregular heart rate/rhythm (Atrial fibrillation, rate controlled) Gastrointestinal: Normal bowel sounds, No tenderness Musculoskeletal: No tenderness Integumentary: No rashes Neurological: Normal speech, Normal tone, Normal affect Lymphatics: No axilla or inguinal lymphadenopathy Laboratory Data at Discharge: WBC 13.4 K/uL (4.3-10.9) H 12/23/18 05:07 Hgb 14.5 g/dL (12.0-15.0) 12/23/18 05:07 Hct 44.4 % (36.0-45.0) 12/23/18 05:07 Plt Count 245 K/uL (152-406) 12/23/18 05:07 PT 13.2 SECONDS (9.5-12.5) H 12/20/18 13:02 INR 1.12 12/20/18 13:02 Sodium 138 mmol/L (136-145) 12/24/18 03:45 Potassium 3.6 mmol/L (3.5-5.1) 12/24/18 03:45 BUN 33 mg/dL (7-18) H 12/24/18 03:45 Creatinine 0.88 mg/dL (0.55-1.3) 12/24/18 03:45 Glucose 146 mg/dL (74-106) H 12/24/18 03:45 Phosphorus 4.3 mg/dL (2.5-4.9) 12/21/18 05:12 Magnesium 2.0 mg/dL (1.8-2.4) 12/21/18 05:12 Total Bilirubin 1.4 mg/dL (0.2-1.0) H 12/23/18 05:07 AST 86 U/L (15-37) H 12/23/18 05:07 ALT 117 U/L (12-78) H 12/23/18 05:07 Alkaline Phosphatase 144 U/L (45-117) H 12/23/18 05:07 Troponin I 1.87 ng/mL (0.0-0.045) H* 12/21/18 05:12 Home Medications: Albuterol Sulfate [Proair Hfa] 2 puff IH Q4H PRN 12/20/18 Budesonide/Formoterol Fumarate [Symbicort 160-4.5 Mcg Inhaler] 2 puff IH BID 05/02 Indapamide [Lozol] 2.5 mg PO DAILY 12/20/18 Lansoprazole 1 tab PO BEDTIME 12/20/18 Levothyroxine Sodium 50 mcg PO [id number] 12/20/18 Losartan Potassium 1 tab PO DAILY 12/20/18 Montelukast [Singulair*] 1 tab PO DAILY 12/20/18 Zolpidem Tartrate [Zolpidem Tartrate ER] 6.25 mg PO BEDTIME PRN 12/20/18 Apixaban [Eliquis] 2.5 mg PO BID #60 tablet 12/24/18 Carvedilol [Coreg*] 3.125 mg PO BID 6AM 6PM #60 tab 12/24/18 Escitalopram [Lexapro*] 10 mg PO DAILY #30 tab 12/24/18 New Medications: Apixaban [Eliquis] 2.5 mg PO BID #60 tablet Carvedilol [Coreg*] 3.125 mg PO BID 6AM 6PM #60 tab Escitalopram [Lexapro*] 10 mg PO DAILY #30 tab Patient Discharge Instructions: Please follow up with the primary care physician in 1 week. Please follow up with cardiology in 2 weeks. Please return to the emergency room with worsening symptoms Diet: AHA Activity: Ad yvonne Followup: Hermann Medley MD [Primary Care Provider] - Polo Martínez MD [ACTIVE - CAN ADMIT] - Time spent managing pt's care (in minutes): 55
== END 2018-12-24 17:56 | DRG 310 ==
LOC: ER 12:17 → ERHOLD 15:08 → 4TH 16:26
PROVIDERS: ADMIT Family Medicine; ATTEND Family Medicine
DX: I48.0 Paroxysmal atrial fibrillation (principal); I95.2 Hypotension due to drugs; J45.20 Mild intermittent asthma, uncomplicated; D72.829 Elevated white blood cell count, unspecified; I44.7 Left bundle-branch block, unspecified; T44.7X5A Adverse effect of beta-adrenoreceptor antagonists, initial encounter; E87.6 Hypokalemia; I10 Essential (primary) hypertension; R53.81 Other malaise; F41.9 Anxiety disorder, unspecified; E66.9 Obesity, unspecified; E03.9 Hypothyroidism, unspecified; K21.9 Gastro-esophageal reflux disease without esophagitis; Z68.32 Body mass index [BMI] 32.0-32.9, adult; Z79.01 Long term (current) use of anticoagulants; Z79.51 Long term (current) use of inhaled steroids
CPT/HCPCS: 36415; 71045; 80048; 80053; 80076; 81003; 81015; 83605; 83735; 83880; 84100; 84132; 84145; 84439; 84443; 84484; 85025; 85610; 87040; 87086; 87088; 87804; 93005; 93306; 94640; 94760; 96365; 96367; 96372; 97116; 97163; 97530; 99285; J0696; J1650; J1720; J2270; J3475; J7030; P9047